=== PATIENT | male | born 1955 | race Caucasian/White ===

== ENCOUNTER → 2016-04-24 | Outpatient (CLI) | payer MEDICARE ==
[~2016-04-24] MED LIST: CLOM50TA2 PO; FLUT100D IH; IOHEXOL 180 MG/ML 10 ML VIAL. ONE; LOSA50TA2 PO; NORT10CA PO; OMEP20CA9 PO; OXYC15TA PO; SERT100T PO; VERA240T PO; methylPREDNISolone ACETATE 40 MG/ML VIAL. ONE; methylPREDNISolone ACETATE 80 MG/ML VIAL. ONE
--- NOTE | 2016-04-25 02:26 | PAIN ---
DATE OF SERVICE: 04/24/2016 DIAGNOSES: Lumbar radiculopathy with lumbar spinal stenosis and lumbar degenerative disk disease. HISTORY OF PRESENT ILLNESS: The patient is a 61-year-old male who returns for followup status post lumbar epidural steroid injections x 3, last seen on 05/11/2015. The patient reports he did very well after the injection, about 75-80% improvement. This lasted until about December of this past year. The patient reports he started having increased pain again in the low back and right leg radiating into the right posterior gluteus, posterolateral thigh, lateral anterior thigh, for the most part on the right side only, but occasionally on the left. The patient reports it is worse across the back with some increased spasms. His primary care physician has put him on some muscle relaxants as well as OxyContin, which he is only taking half of the amount prescribed as he does not like to be on pain medications. 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 The patient reports that he has no new motor or sensory deficits, no new bowel or bladder incontinence, but still significant pain in the back itself. We did have a new MRI scan dated 10/12/2015 with degenerative changes again noted at L4-L5, L3-L4, L5-S1 with some broad-based disk bulging at L4-L5 and L3-L4 with some mild central spinal stenosis. The patient otherwise is doing fairly well, has no new motor or sensory deficits, no new bowel or bladder incontinence or other complaints. The patient's old chart was reviewed as his current medication regimen and updated. Current review of systems updated today as well. PHYSICAL EXAMINATION: VITAL SIGNS: Today, the patient's blood pressure is 131/86, pulse is 96, respirations 18, temperature 98.2 degrees Fahrenheit, height is 5 feet 6 inches, weight is 150 pounds. GENERAL: The patient is awake, alert, oriented, appropriate, very pleasant demeanor. HEENT: Shows normocephalic, atraumatic. Extraocular movements are intact and symmetrical. Oral cavity shows mucous membranes are moist and pink. NECK: Shows anterior throat supple. CHEST: Shows normal on inspection. Breath sounds are clear to auscultation bilaterally. HEART: Shows S1 and S2 clear. ABDOMEN: Soft, nontender, nondistended. BACK: Shows spine grossly in midline. Lumbar paraspinous muscle shows some moderate tenderness with palpation, very firm musculature throughout the upper, middle and lower distribution of paraspinous lumbar musculature, but normal muscle girth, just firm and diffusely tender throughout bilaterally. No tenderness over the sacrum or sacroiliac regions. The patient shows good rotation and motion of the lumbar spine, both laterally as well as extension and flexion. EXTREMITIES: Lower extremities show deep tendon reflexes at 1+/4 in the patellar and tendo calcaneus tendons. Motor exam is strong with 5/5 dorsiflexion, extension, quadriceps and hamstring flexion and equal. Options were discussed with the patient. We will proceed with a lumbar epidural steroid injection today at the L4-L5 level with fluoroscopic guidance. Risks were again discussed including, but not limited to bleeding, infection, possibility of epidural hematoma and subsequent neurological compromise, dural puncture, headaches, spinal cord and/or nerve damage, side effects of steroid medication and poor results regarding pain control. The patient understands and wishes to proceed. The patient will return to the clinic in approximately 2 weeks for followup. He was counseled on return appointment, activity level and side effects to be aware of. DIAGNOSES: Lumbar radiculopathy with lumbar degenerative disk disease and lumbar spinal stenosis. PROCEDURE: Lumbar epidural steroid injection in translaminar approach at the L4-L5 level with fluoroscopic guidance under sterile prep and drape using local anesthetic. Medications injected are 120 mg of Depo-Medrol plus 10 mL of preservative-free normal saline and 2 mL of Isovue for contrast. The patient's condition at discharge is stable. The patient tolerated the procedure well, had no complications. LUCIANO HAMMONDS MD DR: ADAN/cuca JOB#: [id number] / [id number]
== END | disposition home or self-care (01) ==
LOC: PNCL 13:30
PROVIDERS: ATTEND Anesthesiology
DX: M51.16 Intervertebral disc disorders with radiculopathy, lumbar region (principal)
CPT/HCPCS: 62323; J1030; J1040

== ENCOUNTER → 2016-05-08 | Outpatient (CLI) | payer MEDICARE ==
--- NOTE | 2016-05-09 01:02 | PAIN ---
DATE OF SERVICE: 05/08/2016 PROGRESS NOTE DIAGNOSES: Lumbar radiculopathy with lumbar degenerative disk disease and lumbar spinal stenosis. HISTORY OF PRESENT ILLNESS: The patient is a 61-year-old male who returns for followup status post lumbar epidural steroid injection x 1. The patient reports she did very well about 75% improvement in his low back and right lower extremity. The patient reports that the pain in his leg has almost completely gone, but he still has some pain in the posterior hip, posterior back without significant radiation. The patient reports it is a dull aching pain, worse with standing for long periods of walking, changing positions at times, but does not awake him sleepy. 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 The patient reports it is a 3 on a scale of 10, describes the pain as dull, some sharper pain occasionally, but overall much improved without any new motor or sensory deficits, no new bowel or bladder incontinence or other complaints. PHYSICAL EXAMINATION: VITAL SIGNS: The patient's blood pressure 146/96, pulse 90, respirations 18, temperature 98.3 degrees Fahrenheit, height is 5 feet 6 inches and weighs 149 pounds. GENERAL: The patient is awake, alert, oriented, appropriate, very pleasant demeanor. HEENT: Head shows normocephalic and atraumatic. Extraocular movements are intact and symmetrical. Oral cavity shows mucous membranes are moist and pink. Dentition is intact. NECK: Shows anterior throat supple without palpable lymphadenopathy noted. Swallow reflex is symmetrical. Neck shows full rotation and motion of the cervical spine without difficulty or tenderness. CHEST: Shows normal on inspection. Breath sounds are clear to auscultation bilaterally. HEART: Shows S1 and S2 clear. ABDOMEN: Soft, nontender, and nondistended. No palpable organomegaly is noted. BACK: Shows spine grossly in midline. Lumbar paraspinous muscle shows some moderate tenderness with palpation, but is symmetrical in appearance. Some mild diffuse tenderness in the lower lumbar distribution, though slightly more on the right than the left, but no asymmetry, no trigger points, no radiation. No tenderness over the sacrum or sacroiliac regions. EXTREMITIES: Lower extremities show deep tendon reflexes at 1+ in the patellar and tendo calcaneus tendons. Motor exam is strong with 5/5 dorsiflexion and extension as well as quadriceps and hamstring flexion and are strong and equal. PLAN: Options were discussed with the patient. At this time, the patient's old chart was reviewed and his current medication regimen and updated. Current review of systems updated today as well. We will plan on a second lumbar epidural steroid injection today with fluoroscopic guidance. Risks were again discussed including, but not limited to bleeding, infection, possibility of epidural hematoma, and subsequent neurological compromise, dural puncture, headaches, spinal cord and/or nerve damage, side effects of steroid medication and poor results regarding pain control. The patient understands and wished to proceed. The patient will return to clinic in approximately 2 weeks for followup. He was counseled on his return appointment, activity level and side effects to be aware of. DIAGNOSES: Lumbar radiculopathy with lumbar degenerative disk disease and lumbar spinal stenosis. PROCEDURE: Lumbar epidural steroid injection in translaminar approach at the L4-L5 level using C-arm fluoroscopic guidance under sterile prep and drape using local anesthetic. MEDICATIONS INJECTED: Depo-Medrol 120 mg plus 10 mL of preservative-free normal saline and 2 mL of Isovue for contrast. CONDITION AT DISCHARGE: Stable. The patient tolerated the procedure well, had no complications. LUCIANO HAMMONDS MD DR: ADAN/cuca JOB#: [id number] / [id number]
== END | disposition home or self-care (01) ==
LOC: PNCL 13:28
PROVIDERS: ATTEND Anesthesiology
DX: M51.16 Intervertebral disc disorders with radiculopathy, lumbar region (principal); M48.06 Spinal stenosis, lumbar region
CPT/HCPCS: 62323; J1030; J1040

== ENCOUNTER → 2016-06-08 | Outpatient (CLI) | payer MEDICARE ==
--- NOTE | 2016-06-09 01:11 | PAIN ---
DATE OF SERVICE: 06/08/2016 PROGRESS NOTE DIAGNOSES: Lumbar radiculopathy with lumbar spinal stenosis, lumbar degenerative disk disease. HISTORY OF PRESENT ILLNESS: The patient is a 61-year-old male, who returns for followup status post lumbar epidural steroid injections x 2. The patient reports initially about 80%, better, but the pain is now about 50% improved after last injection, still some pain in the right leg and low back and it was worse in the morning and stiff, worse on the right side and the low back as well. The patient reports his pain is 5 on a scale of 10 and its worse still doing well with increased activity and standing and walking, better than ____, but the pain is not quite significantly reduced as well after the first injection. ____ right leg aches, numbness at times, mostly in the right anterior thigh, medial, lower leg below the knee. The patient reports no new motor or sensory deficits, no new bowel or bladder incontinence or other complaints. PHYSICAL EXAMINATION: VITAL SIGNS: Today, the patient's blood pressure is 125/88, pulse 101, respirations 18, temperature 98.7 degrees Fahrenheit, height is 5 feet 6 inches, weight is 157 pounds. GENERAL: The patient is awake, alert, oriented, appropriate, very pleasant demeanor. HEENT: Head shows normocephalic, atraumatic. Extraocular movements are intact, symmetrical. Oral cavity shows mucous membranes moist and pink. NECK: Shows anterior throat supple without palpable lymphadenopathy noted. Swallow reflex is symmetrical. CHEST: Shows normal on inspection. Breath sounds clear to auscultation bilaterally. HEART: Shows S1 and S2 clear. ABDOMEN: Soft, nontender, nondistended. BACK: Shows spine grossly midline. Lumbar paraspinous muscle shows moderate tenderness with palpation, but only diffusely in the lower lumbar distribution, slightly more on the right than the left, but is symmetrical without evidence of atrophy, hypertrophy, no radiation of pain, no tenderness over the sacrum or the sacroiliac regions. The patient shows good rotation and motion of the lumbar spine, both laterally as well as extension and flexion. EXTREMITIES: Lower extremities showed deep tendon reflexes at 1+ in the patellar and tendo calcaneus tendons. Motor exam is strong with 5/5 dorsiflexion, extension, quadriceps and hamstring flexion equal. Options were discussed with the patient. The patient's old chart was reviewed and his current medication regimen updated. Current review of systems updated today as well. We will proceed with a third lumbar epidural steroid injection today with fluoroscopic guidance. Risks were again discussed including but not limited to bleeding, infection, possibility of epidural hematoma, subsequent neurologic compromise, dural puncture headaches, spinal cord and/or nerve damage, side effects of steroid medications and poor results regarding pain control. The patient understands and wishes to proceed. The patient will return to clinic in approximately 2 weeks for followup. He was counseled on return appointment, activity level and side effects to be aware of. DIAGNOSIS: Lumbar radiculopathy with lumbar spinal stenosis, lumbar degenerative disease. PROCEDURES: Lumbar epidural steroid injection translaminar approach at the L4-L5 level using C-arm fluoroscopic guidance under sterile prep and drape using local anesthetic. Medication injected 120 mg Depo-Medrol plus 10 mL of preservative-free normal saline and 2 mL of Isovue for contrast. CONDITION AT DISCHARGE: Stable. The patient tolerated the procedure well, had complications. LUCIANO HAMMONDS MD DR: ADAN/cuca JOB#: [id number] / [id number]
== END | disposition home or self-care (01) ==
LOC: PNCL 09:28
PROVIDERS: ATTEND Anesthesiology
DX: M51.16 Intervertebral disc disorders with radiculopathy, lumbar region (principal); M48.06 Spinal stenosis, lumbar region
CPT/HCPCS: 62323; J1030; J1040

== ENCOUNTER → 2016-10-12 | Outpatient (CLI) | payer MEDICARE ==
[~2016-10-12] MED LIST changes: +GADOBUTROL 7.5 MMOL/7.5 ML VIAL INT ART ONE; -IOHEXOL 180 MG/ML 10 ML VIAL. ONE; +IOHEXOL 300 MG/ML 50 ML VIAL. INT ART ONE; +LIDOCAINE 1% Multi-Dose 20 ML VIAL. ID ONE; -methylPREDNISolone ACETATE 40 MG/ML VIAL. ONE; -methylPREDNISolone ACETATE 80 MG/ML VIAL. ONE
--- NOTE | 2016-10-12 13:11 | KCIC ---
MR arthrogram of the right shoulder Indication: Chronic pain. Prior arthroscopic surgery x2. Injury in 1999. No prior studies available for comparison. Technique: Intra-articular contrast injected into the glenohumeral joint and is reported separately. Routine 4 plane sequences were obtained, including ABER positioning. Findings: Acromioclavicular joint: Intact. Very mild degenerative changes but no significant undersurface mass effect. Rotator cuff: Mild undersurface thinning and irregularity of the supraspinatus and infraspinatus tendons compatible with partial tearing. No high-grade or full-thickness tear. No significant fluid or contrast in the subdeltoid bursa. Articular cartilage: Moderate chondromalacia, greater at the glenoid. Very mild surface irregularity of the glenoid subchondral bone. No significant subchondral edema. Small anteroinferior glenoid subchondral cyst. Labrum: Mild ill-defined contrast accumulation within the superior labrum. Mild blunting of the posterior and inferior labrum. Mild irregularity of the anteroinferior labrum. All of these findings could be related to chronic tearing and/or prior surgical intervention. No acute appearing labral detachment. Biceps tendon: Intact Bones: No lesion or acute fracture. Soft tissue: No acute soft tissue abnormality. No evidence of nerve entrapment or space-occupying lesion. Impression: 1. Mild superficial undersurface tearing of the supraspinatus and infraspinatus tendon of the rotator cuff. No full-thickness rupture or retraction. 2. Generalized labral irregularity, with mild signal in the superior labrum and anteroinferior labrum. Findings could be related to chronic degeneration or tearing, or secondary to prior labral surgery. The overall appearance appears chronic and degenerative, but tearing of the superior labrum in particular is difficult to exclude. 3. Glenohumeral joint primary osteoarthritis. At least moderate glenoid chondromalacia with subchondral bone irregularity. Electronically signed by: Jovanny Hernandez MD (10/12/2016 1:08 PM)
--- NOTE | 2016-10-12 14:06 | KCIC ---
PROCEDURE: Right shoulder injection using fluoroscopic guidance, prior to MR. HISTORY: Shoulder pain. Chronic pain. Injury in 1999. TECHNIQUE: The procedure was explained to the patient as were potential risks, including among others infection, bleeding or allergic reaction. All questions were answered. Informed written and verbal consent was obtained. The shoulder was prepped and draped in the usual sterile manner. Following administration of local anesthetic, a 22-gauge needle was advanced into the anterior shoulder. Following negative aspiration, 12 cc of a solution of 5cc Omnipaque-300 contrast, 5 cc 1% lidocaine, 10 cc normal saline, and 0.1 cc gadolinium was injected without difficulty. The needle was removed. There was good hemostasis at the injection site. The patient left in stable condition without immediate complication. The patient was given postprocedural instructions, and instructed to contact us or the ER if there are any complications. A single spot image is obtained. FLUOROSCOPY TIME:?23 seconds Electronically signed by: Jovanny Hernandez MD (10/12/2016 2:03 PM)
== END | disposition home or self-care (01) ==
LOC: KCIC 10:37
PROVIDERS: ATTEND Orthopaedic Surgery
DX: M19.011 Primary osteoarthritis, right shoulder (principal); G89.29 Other chronic pain
CPT/HCPCS: 73040; 73222; Q9967; A9585

== ENCOUNTER → 2016-11-20 | Outpatient (CLI) | payer MEDICARE ==
[~2016-11-20] MED LIST changes: -GADOBUTROL 7.5 MMOL/7.5 ML VIAL INT ART ONE; +GADOBUTROL 7.5 MMOL/7.5 ML VIAL IV ONE; -IOHEXOL 300 MG/ML 50 ML VIAL. INT ART ONE; -LIDOCAINE 1% Multi-Dose 20 ML VIAL. ID ONE
--- NOTE | 2016-11-20 09:48 | KCIC ---
EXAM: Brain MRI with and without contrast. HISTORY: Headache. Traumatic brain injury. TECHNIQUE: Multiplanar, multisequence magnetic resonance imaging of the brain was performed prior to and following the administration of 6 cc Gadavist intravenous contrast. COMPARISON: None. FINDINGS: There is no restricted diffusion to suggest acute or subacute infarction. There is a focus of susceptibility effect within the right frontotemporal junction due to chronic microhemorrhage. There is surrounding T2/FLAIR hyperintensity likely due to gliosis. There are multiple additional scattered focal areas of T2/FLAIR hyperintensity within the cerebral white matter, a nonspecific finding. There is no mass effect or midline shift. There is no hydrocephalus. There is evidence of prior right lens surgery. The paranasal sinuses and mastoid air cells are unremarkable. There are normal flow voids within the cerebral vessels. No abnormal enhancing lesion is seen. IMPRESSION: 1. No acute intracranial finding. 2. Focus of susceptibility effect with surrounding T2/FLAIR hyperintensity within the right frontotemporal junction. Given the history of prior traumatic brain injury, this is likely due to a focus of chronic microhemorrhage with surrounding gliosis. 3. Multiple scattered focal areas of T2/FLAIR hyperintensity within the cerebral white matter, a nonspecific finding. The lesion distribution and configuration favors chronic small vessel disease rather than demyelinating disease as the underlying etiology. This is advanced for patient age. Electronically signed by: Maria Alejandra Leblanc MD (11/20/2016 9:44 AM) [id number]
== END | disposition home or self-care (01) ==
LOC: KCIC MRI 08:45
PROVIDERS: ATTEND Physician Assistant Surgical
DX: R51 Headache (principal); S06.9X0D Unspecified intracranial injury without loss of consciousness, subsequent encounter; X58.XXXD Exposure to other specified factors, subsequent encounter
CPT/HCPCS: 70553; A9585

== ENCOUNTER 2016-12-26 12:32 | Emergency (ER) | payer MEDICARE ==
[~2016-12-26] VITALS: Ht 167.6 cm; Wt 71.2 kg
[~2016-12-26 12:32] MED LIST changes: -GADOBUTROL 7.5 MMOL/7.5 ML VIAL IV ONE
[2016-12-26 12:35] VITALS: BP 151/96
--- NOTE | 2016-12-26 13:03 | PHYS DOC ---
Past Medical History Past Medical History: Hypertension Additional Past Medical Histor: HEAD INJURY Past Surgical History: Cholecystectomy Additional Past Surgical Histo: NECK-MIGUEL Alcohol Use: Occasionally Drug Use: None Adult General Chief Complaint Chief Complaint: LOWER EXT PAIN [facility] HPI Patient is a 61 year old male presents to the emergency department stating that a few days ago he had a piece of metal that was caught into his left lower leg. He states he pulled it out and then developed a knot around the area. He states within the last day or 2 he developed bruising at the sock line. He states that his leg had been swollen above the sock. Patient states that he take at his primary care physician who referred him to the emergency department. He denies any numbness or tingling in the lower extremity. He does state that he does take an aspirin. He denies any other blood thinners at the current time. He denies any calf pain or discomfort. Review of Systems Review of Systems Constitutional: Denies fever or chills [] Eyes: Denies change in visual acuity, redness, or eye pain [] HENT: Denies nasal congestion or sore throat [] Respiratory: Denies cough or shortness of breath [] Cardiovascular: No additional information not addressed in HPI [] GI: Denies abdominal pain, nausea, vomiting, bloody stools or diarrhea [] : Denies dysuria or hematuria [] Musculoskeletal: Denies back pain or joint pain [] Integument: Denies rash or skin lesions. Bruising and possible abscess to the left lower leg. Neurologic: Denies headache, focal weakness or sensory changes [] Endocrine: Denies polyuria or polydipsia [] Current Medications Current Medications Current Medications Medications (Trade) Dose Ordered Sig/Dat Start Time Stop Time Status Last Admin Dose Admin Lidocaine/Sodium Bicarbonate (Buffered Lidocaine 1%) 20 ml 1X ONCE 12/26/16 14:15 12/26/16 14:16 DC 12/26/16 14:19 20 ML Allergies Allergies Allergies Coded Allergies Type Severity Reaction Last Updated Verified methadone Allergy Intermediate hallucinations 04/13/15 Yes trazodone Allergy Intermediate hallucinations 04/13/15 Yes Physical Exam Physical Exam Constitutional: Well developed, well nourished, no acute distress, non-toxic appearance. [] HENT: Normocephalic, atraumatic, bilateral external ears normal, oropharynx moist, no oral exudates, nose normal. [] Eyes: PERRLA, EOMI, conjunctiva normal, no discharge. [] Neck: Normal range of motion, no tenderness, supple, no stridor. [] Cardiovascular:Heart rate regular rhythm Lungs & Thorax: No respiratory distress noted. Skin: Warm, dry, no erythema, no rash. Patient with ecchymosis noted on the left lower leg on the medial part just above the ankle. Patient appears to have a straight line across the leg with the ecchymosis starts from where his sock had been applied. Patient with a knot noted underneath the scabbed area on the left ware. Back: No tenderness Extremities: No tenderness, no cyanosis, no clubbing, ROM intact, no edema. Patient with a negative Homans sign. Patient with tenderness noted on the left ware. Peripheral pulses 2+ cap refill brisk less than 2 seconds. Neurologic: Alert and oriented X 3, normal motor function, normal sensory function, no focal deficits noted. [] Psychologic: Affect normal, judgement normal, mood normal. [] Current Patient Data Vital Signs Vital Signs Date Time Temp Pulse Resp B/P (MAP) Pulse Ox O2 Delivery O2 Flow Rate FiO2 12/26/16 12:35 98.4 102 18 99 Room Air 98.4 Lab Values Laboratory Tests Test 12/26/16 13:06 White Blood Count 5.7 x10^3/uL (4.0-11.0) Red Blood Count 4.27 x10^6/uL (4.30-5.70) L Hemoglobin 14.0 g/dL (13.0-17.5) Hematocrit 40.6 % (39.0-53.0) Mean Corpuscular Volume 95 fL (79-100) Mean Corpuscular Hemoglobin 33 pg (25-35) Mean Corpuscular Hemoglobin Concent 34 g/dL (31-37) Red Cell Distribution Width 12.4 % (11.5-14.5) Platelet Count 163 x10^3/uL (140-400) Neutrophils (%) (Auto) 79 % (31-73) H Lymphocytes (%) (Auto) 13 % (24-48) L Monocytes (%) (Auto) 6 % (0-9) Eosinophils (%) (Auto) 2 % (0-3) Basophils (%) (Auto) 0 % (0-3) Neutrophils # (Auto) 4.5 x10^3uL (1.8-7.7) Lymphocytes # (Auto) 0.7 x10^3/uL (1.0-4.8) L Monocytes # (Auto) 0.4 x10^3/uL (0.0-1.1) Eosinophils # (Auto) 0.1 x10^3/uL (0.0-0.7) Basophils # (Auto) 0.0 x10^3/uL (0.0-0.2) Prothrombin Time 12.5 SEC (11.7-14.0) Prothrombin Time INR 1.0 (0.8-1.1) PTT 28 SEC (24-38) Sodium Level 144 mmol/L (136-145) Potassium Level 3.6 mmol/L (3.5-5.1) Chloride Level 105 mmol/L (98-107) Carbon Dioxide Level 32 mmol/L (21-32) Anion Gap 7 (6-14) Blood Urea Nitrogen 8 mg/dL (8-26) Creatinine 1.0 mg/dL (0.7-1.3) Estimated GFR (Cockcroft-Gault) 76.5 BUN/Creatinine Ratio 8 (6-20) Glucose Level 100 mg/dL (70-99) H Calcium Level 8.8 mg/dL (8.5-10.1) Total Bilirubin 0.5 mg/dL (0.2-1.0) Aspartate Amino Transferase (AST) 21 U/L (15-37) Alanine Aminotransferase (ALT) 45 U/L (16-63) Alkaline Phosphatase 125 U/L (46-116) H Total Protein 7.3 g/dL (6.4-8.2) Albumin 3.9 g/dL (3.4-5.0) Albumin/Globulin Ratio 1.1 (1.0-1.7) Laboratory Tests 12/26/16 13:06 Laboratory Tests 12/26/16 13:06 EKG EKG [] Radiology/Procedures Radiology/Procedures [][facility] [address] [place], [place] [id number] IMAGING REPORT Signed PATIENT: CHICHO ONEIL ACCOUNT: [id number] : 1955 LOCATION: ER AGE: 61 SEX: M EXAM [id number] STATUS: REG ER ORD. PHYSICIAN: POLO PARISH APRN REASON: pain in the heel PROCEDURE: CALCANEUS LEFT; FOOT LEFT 3V Left calcaneus, 2 views, 12/26/2016: History: Heel pain No fracture is identified. There is a small sclerotic focus in the calcaneus, most likely a bone island. No calcaneal spurring is evident. Subcutaneous edema is present along the plantar aspects of the heel. IMPRESSION: 1. Small sclerotic focus in the calcaneus, most likely a bone island. 2. No acute calcaneal abnormality is detected. Left foot, 3 views, 12/26/2016: No fracture or dislocation is identified. There is only minimal spurring at the IP and MTP joints of the great toe. IMPRESSION: No acute bony abnormality is detected. DICTATED and SIGNED BY: CONNER AUSTIN MD DATE: 12/26/16 1351 CC: POLO PARISH APRN; SAMMY LOMBARDO MD ~ [facility] [address] [place] [address] IMAGING REPORT Signed PATIENT: CHICHO ONEIL ACCOUNT: [id number] : 1955 LOCATION: ER AGE: 61 SEX: M EXAM STATUS: REG ER ORD. PHYSICIAN: POLO PARISH APRN REASON: patient with possible abscess PROCEDURE: EXT NON VASC LEFT Indication redness swelling. Targeted ultrasound was performed. The examination was targeted to the left lower and anterior calf. There is a complex fluid collection in the calf measuring approximately 2.8 x 0.5 cm. This may represent a hematoma. The sterility is not certain. Abscess is not excluded. DICTATED and SIGNED BY: FARHANA NAZARIO MD DATE: 12/26/16 1337 CC: POLO PARISH APRN; SAMMY LOMBARDO MD ~ Course & Med Decision Making Course & Med Decision Making Pertinent Labs and Imaging studies reviewed. (See chart for details) Patient tolerated the procedure very well. His leg does feel somewhat warm. He will be placed on antibiotics such as Bactrim. She'll be recommended to follow- up with a hematology oncology doctor Within the next week. CBC CMP and INR PT is all within normal limits. Patient was recommended to keep the left leg elevated as much as possible. Patient will be discharged home in stable condition signs and symptoms to return back to emergency department as been provided. Recommended following up with his primary care physician as well as next 3-5 days in regards to cellulitis to the left lower leg. [] Dragon Disclaimer Dragon Disclaimer This electronic medical record was generated, in whole or in part, using a voice recognition dictation system. Departure Departure Impression: Primary Impression: Cellulitis of left lower leg Additional Impression: Abnormal bruising Disposition: HOME, SELF-CARE Condition: STABLE Referrals: SAMMY LOMBARDO MD (PCP) Patient Instructions: Cellulitis, [id number] Additional Instructions: Your lab results was within normal limits. Your x-ray results identified a bone island in your foot. You'll be placed on antibiotics please take these as directed. Keep the left leg elevated as much as possible. Follow-up with hematology oncology physician within the next week. Follow-up to primary care physician next 3-5 days. Return back to emergency prior signs and symptoms of become worse. Scripts Sulfamethoxazole/Trimethoprim (BACTRIM DS TABLET) 1 Each Tablet 1 TAB PO BID, #20 TAB Prov: POLO PARISH APRN 12/26/16 Incision and Drainage Incision and Drainage : Site: left lower leg Blade Size: 18-gauge needle I & D Procedure: betadine prep, sterile drapes applied, sterile dressing applied Progress Site was cleaned with Betadine with sterile drapes applied around the outer area. 1% lidocaine buffered was injected to the area with approximately 2 mL. 18 -gauge needle with a syringe was used to aspirate small amount of blood noted. Pressure dressing was applied. Patient will be discharged home in stable condition. Problem Qualifiers POLO PARISH APRN Dec 26, 2016 13:03
[2016-12-26 13:21] LABS: BASO % 0 % (0-3); EOS % 2 % (0-3); HEMATOCRIT 40.6 % (39.0-53.0); LYMPH # 0.7 x10^3/uL (1.0-4.8); LYMPH % 13 % (24-48); MEAN CORPUSCULAR HEMOGLOBIN 33 pg (25-35); MEAN CORPUSCULAR HGB CONC 34 g/dL (31-37); MEAN CORPUSCULAR VOLUME 95 fL (79-100); MONO % 6 % (0-9); NEUT % 79 % (31-73); PLATELET COUNT 163 x10^3/uL (140-400); RED BLOOD COUNT 4.27 x10^6/uL (4.30-5.70); RED CELL DISTRIBUTION WIDTH 12.4 % (11.5-14.5); WHITE BLOOD COUNT 5.7 x10^3/uL (4.0-11.0)
[2016-12-26 13:24] LABS: CALCIUM 8.8 mg/dL (8.5-10.1); GFR 76.5; POTASSIUM 3.6 mmol/L (3.5-5.1)
[2016-12-26 13:31] LABS: ALBUMIN 3.9 g/dL (3.4-5.0); ALBUMIN/GLOBULIN RATIO 1.1 (1.0-1.7); PROTHROMBIN TIME PATIENT 12.5 SEC (11.7-14.0); TOTAL BILIRUBIN 0.5 mg/dL (0.2-1.0); TOTAL PROTEIN 7.3 g/dL (6.4-8.2)
--- NOTE | 2016-12-26 13:40 | RAD ---
Indication redness swelling. Targeted ultrasound was performed. The examination was targeted to the left lower and anterior calf. There is a complex fluid collection in the calf measuring approximately 2.8 x 0.5 cm. This may represent a hematoma. The sterility is not certain. Abscess is not excluded.
--- NOTE | 2016-12-26 13:57 | RAD ---
Left calcaneus, 2 views, 12/26/2016: History: Heel pain No fracture is identified. There is a small sclerotic focus in the calcaneus, most likely a bone island. No calcaneal spurring is evident. Subcutaneous edema is present along the plantar aspects of the heel. IMPRESSION: 1. Small sclerotic focus in the calcaneus, most likely a bone island. 2. No acute calcaneal abnormality is detected. Left foot, 3 views, 12/26/2016: No fracture or dislocation is identified. There is only minimal spurring at the IP and MTP joints of the great toe. IMPRESSION: No acute bony abnormality is detected.
[2016-12-26] MEDS ORDERED: LIDOCAINE 1% / SOD BICARB 8.4% 20 ML VIAL. IJ ONE (14:15)
[2016-12-26] MEDS ORDERED: SULF1TAB24 PO (14:53)
[2016-12-26] MEDS ORDERED: DIPHTH,PERTUSS(ACELL),TET TOX 0.5 ML DISP.SYRIN. VAX IM ONE (15:00)
== END 2016-12-26 15:20 | disposition home or self-care (01) ==
LOC: ER 12:32
DX: S80.12XA Contusion of left lower leg, initial encounter (principal); L03.116 Cellulitis of left lower limb; I10 Essential (primary) hypertension; Z88.5 Allergy status to narcotic agent; X58.XXXA Exposure to other specified factors, initial encounter; Y93.89 Activity, other specified; Y92.89 Other specified places as the place of occurrence of the external cause; Y99.8 Other external cause status
CPT/HCPCS: 10060; 36415; 73630; 73650; 76881; 80053; 85025; 85610; 85730; 90471; 90715; 99285-25

== ENCOUNTER 2017-04-24 12:10 | Emergency (ER) | payer MEDICARE ==
[2017-04-24 13:19] LABS: ADD MAN DIFF? NO
[2017-04-24 13:25] LABS: BASO % 0 % (0-3); EOS # 0.1 x10^3/uL (0.0-0.7); EOS % 1 % (0-3); HEMATOCRIT 42.1 % (39.0-53.0); HEMOGLOBIN 14.1 g/dL (13.0-17.5); LYMPH # 0.9 x10^3/uL (1.0-4.8); LYMPH % 14 % (24-48); MEAN CORPUSCULAR HEMOGLOBIN 32 pg (25-35); MEAN CORPUSCULAR HGB CONC 34 g/dL (31-37); MEAN CORPUSCULAR VOLUME 94 fL (79-100); MONO # 0.5 x10^3/uL (0.0-1.1); MONO % 8 % (0-9); NEUT # 4.6 x10^3uL (1.8-7.7); NEUT % 76 % (31-73); PLATELET COUNT 167 x10^3/uL (140-400); RED BLOOD COUNT 4.49 x10^6/uL (4.30-5.70); RED CELL DISTRIBUTION WIDTH 12.7 % (11.5-14.5); WHITE BLOOD COUNT 6.1 x10^3/uL (4.0-11.0)
[2017-04-24 13:38] LABS: ANION GAP 9 (6-14); BLOOD UREA NITROGEN 14 mg/dL (8-26); BUN/CREATININE RATIO 14 (6-20); CALCIUM 8.8 mg/dL (8.5-10.1); CARBON DIOXIDE 28 mmol/L (21-32); CHLORIDE 104 mmol/L (98-107); GFR 76.2; GLUCOSE 94 mg/dL (70-99); SODIUM 141 mmol/L (136-145)
[2017-04-24 13:41] LABS: PARTIAL THROMBOPLASTIN TIME 28 SEC (24-38); PROTHROMBIN TIME PATIENT 12.8 SEC (11.7-14.0)
[2017-04-24 13:43] LABS: ALBUMIN 3.7 g/dL (3.4-5.0); ALBUMIN/GLOBULIN RATIO 1.1 (1.0-1.7); ALK PHOS 137 U/L (46-116); ALT (SGPT) 19 U/L (16-63); AST (SGOT) 14 U/L (15-37); LIPASE 81 U/L (73-393); MAGNESIUM 2.1 mg/dL (1.8-2.4); TOTAL BILIRUBIN 0.6 mg/dL (0.2-1.0)
[2017-04-24 13:46] LABS: TROPONINI < 0.017 ng/mL (0.000-0.055)
[2017-04-24 13:49] LABS: NT-PRO BNP 127 pg/mL (0-124)
[2017-04-24] MEDS: LIDO:MAALOX:DONNATAL 1:1:1 15 ML SINGLE DOSE SWSW (14:00)
== END 2017-04-24 17:04 | disposition home or self-care (01) ==
LOC: ER 12:10
DX: R07.89 Other chest pain (principal); R10.13 Epigastric pain; E78.00 Pure hypercholesterolemia, unspecified; I10 Essential (primary) hypertension; Z90.49 Acquired absence of other specified parts of digestive tract; Z88.8 Allergy status to other drugs, medicaments and biological substances
CPT/HCPCS: 36415; 71046; 80053; 83690; 83735; 83880; 84484; 85025; 85610; 85730; 93005; 99285-25

== ENCOUNTER → 2017-08-21 | Outpatient (CLI) | payer MEDICARE | END | disposition home or self-care (01) | LOC: ECHO 09:52 | DX: I08.0 Rheumatic disorders of both mitral and aortic valves (principal); R60.0 Localized edema | CPT/HCPCS: 93306 ==

== ENCOUNTER → 2017-09-17 | Outpatient (CLI) | payer MEDICARE | END | disposition home or self-care (01) | LOC: NM 07:57 | DX: R07.89 Other chest pain (principal) | CPT/HCPCS: 78452; 93017; 96374; 96376; A9500 ==

== ENCOUNTER → 2017-11-05 | Outpatient (CLI) | payer MEDICARE ==
[~2017-11-05] MED LIST changes: -CLOM50TA2 PO; -FLUT100D IH; +IOHEXOL 180 MG/ML 10 ML VIAL.; +LIDOCAINE 1% PF 2 ML VIAL.; -LOSA50TA2 PO; -NORT10CA PO; -OMEP20CA9 PO; -OXYC15TA PO; -SERT100T PO; -VERA240T PO; +methylPREDNISolone ACETATE 40 MG/ML VIAL.; +methylPREDNISolone ACETATE 80 MG/ML VIAL.
== END | disposition home or self-care (01) ==
LOC: PNCL 13:31
DX: M51.16 Intervertebral disc disorders with radiculopathy, lumbar region (principal); M48.061 Spinal stenosis, lumbar region without neurogenic claudication; Z88.8 Allergy status to other drugs, medicaments and biological substances
CPT/HCPCS: 62323; J1030; J1040; Q9965

== ENCOUNTER → 2018-01-16 | Outpatient (CLI) | payer MEDICARE ==
[2017-04-24 12:14] VITALS: BP 174/95
[~2018-01-16] MED LIST changes: +CLOM50TA16 PO; +FLUT100D IH; +HYDR12.53 PO; -IOHEXOL 180 MG/ML 10 ML VIAL.; +IOHEXOL 180 MG/ML 10 ML VIAL. ONE; -LIDOCAINE 1% PF 2 ML VIAL.; +LIDOCAINE 2% PF 2ML VIAL. ONE; +LOSA50TA2 PO; +NORT10CA PO; +OMEP20CA9 PO; +OMEP40CA5 PO; +OXYC15TA PO; +SERT100T PO; +SULF1TAB24 PO; +VERA240T PO; -methylPREDNISolone ACETATE 40 MG/ML VIAL.; +methylPREDNISolone ACETATE 40 MG/ML VIAL. ONE; -methylPREDNISolone ACETATE 80 MG/ML VIAL.; +methylPREDNISolone ACETATE 80 MG/ML VIAL. ONE
--- NOTE | 2018-01-16 23:43 | PAIN ---
DATE OF SERVICE: 01/16/2018 PROGRESS NOTE FOR PAIN CLINIC DIAGNOSES: Lumbar radiculopathy with lumbar spinal stenosis and lumbar degenerative disk disease. HISTORY OF PRESENT ILLNESS: The patient is a 62-year-old male who returns for followup status post lumbar epidural steroid injection x 1 on 11/05/2017. The patient reports she did very well with this initially about 70%-80% improvement, now is about down to 15%-20% improvement in the low back and bilateral lower extremities. The patient reports slightly worse on the right side but present bilaterally. The patient reports initially was doing much better, increasing walking, standing, change in positions, doing work activities, playing baseball as well. He does play in a competitive league. The patient reports no new motor or sensory deficits and no new bowel or bladder incontinence but significant pain returning in the bilateral low back radiating to the posterior lateral aspect of the thighs. The patient reports it is 8 on a scale of 10 at its worst, 5 on average and 3 at its least, radiating, becoming more constant, aching, dull, sharp, sometimes shooting and cramping. PHYSICAL EXAMINATION: VITAL SIGNS: Today, his blood pressure 134/97, pulse 94, respirations 18, temperature 98.3 degrees Fahrenheit, height is 5 feet 6 inches and weight 153 pounds. GENERAL: The patient is awake, alert, oriented, appropriate and very pleasant demeanor. HEENT: Head shows normocephalic and atraumatic. Extraocular muscles are intact and symmetrical. Oral cavity, mucous membranes are moist and pink. Dentition is intact. NECK: Shows anterior throat supple without palpable lymphadenopathy noted. Swallow reflex is symmetrical. CHEST: Shows normal on inspection. Breath sounds clear to auscultation bilaterally. HEART: Shows S1 and S2 clear. No murmurs auscultated. ABDOMEN: Soft, nontender and nondistended. No palpable organomegaly is noted. No rebound or guarding demonstrated. BACK: Shows spine grossly in the midline. Normal appearing thoracic kyphosis and lumbar lordotic curvature. Lumbar paraspinous muscle shows symmetrical on inspection. On palpation shows some moderate tenderness only diffusely without radiation in the paraspinous muscles, mainly in the lower distribution of the paraspinous without significant radiation. No trigger points. No atrophy or hypertrophy. The patient has good rotational motion of the lumbar spine, both laterally as well as extension and flexion. EXTREMITIES: Lower extremities show deep tendon reflexes 1+ in the patellar and tendo-calcaneus tendons are equal. Motor exam is strong with 5/5 dorsiflexion, extension, quadriceps and hamstring flexion and symmetrical. Peripheral pulses are 1+ posterior tibia. No peripheral edema is noted. Options were discussed with the patient. The patient's old chart was reviewed as well as his current medication regimen updated. Current review of systems updated today as well. We will proceed with a second in the series of lumbar epidural steroid injection today with fluoroscopic guidance. Risks were again discussed including, but not limited to bleeding, infection, possibility of epidural hematoma, subsequent neurologic compromise, dural puncture, headaches, spinal cord and/or nerve damage, side effects of steroid medication and poor results regarding pain control. The patient understands and wished to proceed. The patient will return to the clinic in approximately 2 weeks for followup, was counseled as to return appointment, activity level and side effects to be aware of. DIAGNOSES: Lumbar radiculopathy with lumbar spinal stenosis and lumbar degenerative disk disease. PROCEDURES: Lumbar epidural steroid injection, translaminar approach at L4-L5 level using C-arm fluoroscopic guidance under sterile prep and drape using local anesthetic. MEDICATION INJECTED: A total of 120 mg Depo-Medrol plus 10 mL of preservative-free normal saline and 2 mL of Isovue for contrast. CONDITION AT DISCHARGE: Stable. The patient tolerated the procedure well and had no complications. LUCIANO HAMMONDS MD DR: ADAN/cuca JOB#: [id number] / [id number]
== END | disposition home or self-care (01) ==
LOC: PNCL 10:07
PROVIDERS: ATTEND Anesthesiology
DX: M51.16 Intervertebral disc disorders with radiculopathy, lumbar region (principal); M48.061 Spinal stenosis, lumbar region without neurogenic claudication; Z79.899 Other long term (current) drug therapy; Z88.8 Allergy status to other drugs, medicaments and biological substances; Z98.890 Other specified postprocedural states
CPT/HCPCS: 62323; J1030; J1040; J2001; Q9965

== ENCOUNTER → 2018-06-20 | Outpatient (CLI) | payer MEDICARE ==
[2017-04-24 12:14] VITALS: BP 174/95
[~2018-06-20] MED LIST changes: -HYDR12.53 PO; +HYDR12.575 PO; -LIDOCAINE 2% PF 2ML VIAL. ONE; +LOSA-73 PO; -LOSA50TA2 PO; +OMEP20CA10 PO; -OMEP20CA9 PO
--- NOTE | 2018-06-20 18:55 | PAIN ---
DATE OF SERVICE: 06/20/2018 DIAGNOSES: Lumbar radiculopathy with lumbar degenerative disk disease, lumbar spinal stenosis. HISTORY OF PRESENT ILLNESS: The patient is a 63-year-old male who returns for followup status post lumbar epidural steroid injection x 2, most recently 01/16/2018. The patient did very well about 70% improvement until about 3 weeks ago. The patient reports the pain began to return in the low back, more on the right side than the left, radiating to the anterior thigh, medial thigh, posterior gluteus and medial lower leg on the right greater than left. The patient reports it is aching, dull, tight across the back with constant pain and then radiating and shooting pain, which is stabbing and cramping in the right leg. The patient reports it is 8 on a scale of 10 at its worst, 6 on average, 4 at its least and is a 4 today. The patient reports no loss of motor function. No new motor or sensory deficits but still significant pain. It has been returning. Before that, he was doing great with distance walking, able to do work activities with much greater ease and comfort as well as household activities, traveling, sleeping much better. The patient reports now, it is awakening him about every 4 hours. The patient reports no new changes or other complaints. PHYSICAL EXAMINATION: VITAL SIGNS: The patient's blood pressure 131/78, pulse 85, respirations 16, temperature is 97.9 degrees Fahrenheit, height 5 feet 6 inches, weight 161 pounds. GENERAL: The patient is awake, alert, oriented, appropriate, very pleasant demeanor. HEENT: Head shows normocephalic, atraumatic. Extraocular muscles are intact and symmetrical. Oral cavity, mucous membranes moist and pink. Dentition is intact. NECK: Shows anterior throat supple without palpable lymphadenopathy noted. Swallow reflex is normal and symmetrical. CHEST: Shows normal on inspection. Breath sounds clear to auscultation bilaterally. HEART: Shows S1, S2 clear. No murmurs auscultated. ABDOMEN: Soft, nontender, nondistended. No palpable organomegaly is noted. No rebound or guarding demonstrated. BACK: Shows spine grossly in the midline. The patient's back shows good rotational motion of lumbar spine, both laterally greater than 10 degrees right and left as well as extension greater than 10 degrees, forward flexion 45 degrees without significant difficulty or pain reported. No tenderness over the sacrum or sacroiliac regions or the spinous processes. EXTREMITIES: The patient's lower extremities show deep tendon reflexes at 1+ patellar and tendo calcaneus tendons are equal. Motor exam is strong with 5/5 dorsiflexion, extension, quadriceps and hamstring flexion and symmetrical as well. The patient's peripheral pulses are 1+ posterior tibia. No peripheral edema is noted bilaterally. Options were discussed with the patient. The patient's old chart was reviewed as his current medication regimen and updated. Current review of systems is updated today as well. We will proceed with a lumbar epidural steroid injection today with fluoroscopic guidance. Risks were again discussed including, but not limited to bleeding, infection, possibility of epidural hematoma and subsequent neurological compromise, dural puncture, headaches, spinal cord and/or nerve damage, side effects of steroid medication and poor results regarding pain control. The patient understands and wished to proceed. The patient will return to clinic in approximately 2 weeks for followup. He was counseled to return appointment, activity level and side effects to be aware of. DIAGNOSIS: Lumbar radiculopathy with lumbar degenerative disk disease, lumbar spinal stenosis. PROCEDURE: Lumbar epidural steroid injection, translaminar approach, L4-L5 level using C-arm fluoroscopic guidance under sterile prep and drape using local anesthetic. MEDICATION INJECTED: A total of 120 mg Depo-Medrol plus 10 mL of preservative-free normal saline and 2 mL of Isovue for contrast. CONDITION AT DISCHARGE: Stable. The patient tolerated the procedure well, had no complications. LUCIANO HAMMONDS MD DR: ADAN/cuca JOB#: [id number] / [id number]
== END | disposition home or self-care (01) ==
LOC: PNCL 08:52
PROVIDERS: ATTEND Anesthesiology
DX: M51.16 Intervertebral disc disorders with radiculopathy, lumbar region (principal); M48.061 Spinal stenosis, lumbar region without neurogenic claudication; Z88.8 Allergy status to other drugs, medicaments and biological substances
CPT/HCPCS: 62323; J1030; J1040; Q9965

== ENCOUNTER → 2018-08-14 | Outpatient (CLI) | payer MEDICARE ==
[2017-04-24 12:14] VITALS: BP 174/95
--- NOTE | 2018-08-15 00:11 | PAIN ---
DATE OF SERVICE: 08/14/2018 PROGRESS NOTE FOR PAIN CLINIC: DIAGNOSES: Lumbar radiculopathy with lumbar degenerative disk disease and lumbar spinal stenosis. HISTORY OF PRESENT ILLNESS: The patient is a 63-year-old male who returns for followup status post lumbar epidural steroid injection x 1 on 06/20/2018. The patient did very well with this with about an 80% improvement initially, now about 40% improvement overall. The patient reports the pain has been returning. He has been having some active shifts at work lately and has had pain in the low back and bilaterally now, more on the right than the left, but present bilaterally across the low back into the posterior gluteus, posterior lateral thigh, lateral anterior thigh, medial thigh, is aching and constant, becoming more shooting pain in the legs, but mostly across the low back. The patient reports it is an 8 on a scale of 10 at its worst, 7 on average and a 4 at its least and is a 7 today. The patient reports no new motor or sensory deficits, no new bowel or bladder incontinence or other complaints. It has been awakening him from sleep occasionally. Initially, he had increased distance walking, doing work activities, household activities, recreational activities with much greater ease and comfort, now is becoming more noticeable as time goes on. The patient reports no new motor or sensory deficits, no bowel or bladder incontinence or other complaints. PHYSICAL EXAMINATION: VITAL SIGNS: The patient's blood pressure is 142/90, pulse 103, respirations 18, temperature 98.4 degrees Fahrenheit, height is 5 feet 6 inches and weight 159 pounds. GENERAL: The patient is awake, alert, oriented, appropriate, very pleasant demeanor. HEENT: Head is normocephalic, atraumatic. Extraocular movements are intact, symmetrical. Oral cavity: Mucous membranes moist and pink. Dentition is intact. NECK: Shows anterior throat supple without palpable lymphadenopathy noted. Swallow reflex is symmetrical. CHEST: Shows normal with inspection. Breath sounds clear to auscultation bilaterally. HEART: Shows S1, S2 clear. No murmurs auscultated. ABDOMEN: Soft, nontender, nondistended. No palpable organomegaly is noted. No rebound or guarding demonstrated. BACK: Shows spine grossly in the midline. Normal appearing thoracic kyphosis and cervical lordotic curvature. Lumbar curvature is normal in lordotic fashion as well. Lumbar paraspinous muscle shows symmetrical on inspection, on palpation shows some moderate tenderness diffusely without radiation, but diffusely tender in the lower lumbar distribution bilaterally, slightly worse on the right than the left with no asymmetry, no trigger points. No atrophy or hypertrophy. The patient has good rotational motion of lumbar spine without the pain both laterally as well as extension and flexion. EXTREMITIES: The patient's lower extremities show deep tendon reflexes 1+ in the patellar and tendo calcaneus tendons. Motor exam is strong with 5/5 dorsiflexion, extension, quadriceps and hamstring flexion and symmetrical. Peripheral pulses are 1+ posterior tibial. No peripheral edema is noted bilaterally. Options were discussed with the patient. The patient's old chart was reviewed as well as his current medication regimen updated. Current review of systems updated today as well. We will proceed with a first in the series of lumbar epidural steroid injection today with fluoroscopic guidance. Risks were again discussed including, but not limited to bleeding, infection, possibility of epidural hematoma, subsequent neurologic compromise, dural puncture, headaches, spinal cord and/or nerve damage, side effects of steroid medication and poor results regarding pain control. The patient understands and wished to proceed. The patient will return to clinic in approximately 2 weeks for followup. He was counseled as to return appointment, activity level and side effects to be aware of. DIAGNOSES: Lumbar radiculopathy with lumbar degenerative disk disease, lumbar spinal stenosis. PROCEDURE: Lumbar epidural steroid injection, translaminar approach at the L4-L5 level using C-arm fluoroscopic guidance under sterile prep and drape using local anesthetic. MEDICATION INJECTED: A total of 120 mg Depo-Medrol plus 10 mL of preservative-free saline, and 2 mL of contrast. CONDITION AT DISCHARGE: Stable. The patient tolerated procedure well, had no complications. LUCIANO HAMMONDS MD DR: ADAN/cuca JOB#: [id number] / [id number]
== END | disposition home or self-care (01) ==
LOC: PNCL 13:04
PROVIDERS: ATTEND Anesthesiology
DX: M51.16 Intervertebral disc disorders with radiculopathy, lumbar region (principal); M48.061 Spinal stenosis, lumbar region without neurogenic claudication; Z88.5 Allergy status to narcotic agent
CPT/HCPCS: 62323; J1030; J1040; Q9965

== ENCOUNTER → 2018-11-19 | Outpatient (CLI) | payer MEDICARE ==
[2017-04-24 12:14] VITALS: BP 174/95
--- NOTE | 2018-11-19 11:58 | PAIN ---
DATE OF SERVICE: 11/19/2018 PROGRESS NOTE FOR PAIN CLINIC DIAGNOSES: Lumbar radiculopathy with lumbar degenerative disk disease and lumbar spinal stenosis. HISTORY OF PRESENT ILLNESS: The patient is a 63-year-old male who returns for followup status post lumbar epidural steroid injection x 1. The patient reports about 80% improvement initially and he was playing some baseball over the past week, had injured himself with a concussion also has increasing pain in his low back and bilateral lower extremities, worse on the right than the left, but present bilaterally. The patient reports no new motor or sensory deficits. Reports the pain is radiating to posterior gluteus, posterior lateral thigh, anterior thighs, medial thighs, medial lower legs. The patient reports it is aching, dull, tight, shooting, radiating, becoming more constant with walking, standing, changing positions, better with sitting or lying down, does awaken from sleep about every 4 hours. The patient reports the pain is a 9 on a scale of 10 at its worst in the past week, 8 on average, 7 at its least and is an 8 today. The patient reports no new motor or sensory deficits, no new changes. PHYSICAL EXAMINATION: VITAL SIGNS: The patient's blood pressure 124/79, pulse 76, respirations 18, temperature 98.3 degrees Fahrenheit, weight is 157 pounds. GENERAL: The patient is awake, alert, oriented, appropriate, very pleasant demeanor. HEENT: Shows normocephalic, atraumatic. Extraocular movements are intact and symmetrical. Oral cavity: Mucous membranes moist and pink. Dentition is intact. NECK: Shows anterior throat supple without palpable lymphadenopathy noted. Swallow reflex symmetrical. CHEST: Shows normal on inspection. Breath sounds are clear to auscultation bilaterally. HEART: Shows S1, S2 clear. No murmurs auscultated. ABDOMEN: Soft, nontender, nondistended. No palpable organomegaly is noted. No rebound or guarding demonstrated. EXTREMITIES: The patient's lower extremities show deep tendon reflexes 1+ in the patella and tendo calcaneus tendons. Motor exam is strong with 5/5 dorsiflexion, extension, quadriceps and hamstring flexion. Peripheral pulses are 1+ posterior tibia. No peripheral edema is noted bilaterally. Options were discussed with the patient. The patient's old chart was reviewed as his current medication regimen updated. Current review of systems updated today as well. We will proceed with a second in the series of lumbar epidural steroid injection today with fluoroscopic guidance. Risks were again discussed including, but not limited to bleeding, infection, possibility of epidural hematoma, subsequent neurological compromise, dural puncture, headaches, spinal cord and/or nerve damage, side effects of steroid medication and poor results regarding pain control. The patient understands and wished to proceed. The patient will return to clinic in approximately 2 weeks for followup. He was counseled on return appointment, activity level and side effects to be aware of. DIAGNOSES: Lumbar radiculopathy with lumbar degenerative disk disease, lumbar spinal stenosis. PROCEDURE: Lumbar epidural steroid injection, translaminar approach L4-L5 level using C-arm fluoroscopic guidance under sterile prep and drape using local anesthetic. MEDICATION INJECTED: A total of 120 mg Depo-Medrol plus 10 mL of preservative-free normal saline and 2 mL of contrast. CONDITION AT DISCHARGE: Stable. The patient tolerated procedure well, had no complications. LUCIANO HAMMONDS MD DR: ADAN/cuca JOB#: [id number] / [id number]
== END ==
LOC: PNCL 07:33
PROVIDERS: ATTEND Anesthesiology
DX: M51.16 Intervertebral disc disorders with radiculopathy, lumbar region (principal); M48.061 Spinal stenosis, lumbar region without neurogenic claudication
CPT/HCPCS: 62323; J1030; J1040; Q9965

== ENCOUNTER → 2018-12-11 | Outpatient (CLI) | payer MEDICARE ==
[2017-04-24 12:14] VITALS: BP 174/95
[~2018-12-11] MED LIST changes: +BUPIVACAINE MPF 0.25% 10 ML VIAL. ONE; -methylPREDNISolone ACETATE 40 MG/ML VIAL. ONE
--- NOTE | 2018-12-12 13:47 | PAIN ---
DATE OF SERVICE: 12/11/2018 PROGRESS NOTE FOR PAIN CLINIC DIAGNOSES: 1. Lumbar radiculopathy with lumbar degenerative disk disease, lumbar spinal stenosis. 2. Right shoulder joint pain with primary osteoarthritis. HISTORY OF PRESENT ILLNESS: The patient is a 63-year-old male who returns for followup status post lumbar epidural steroid injection x 2. The patient reports about 80% improvement after his last injection in the low back and leg. His chief complaint today, however, is right shoulder pain. He is having some pain in the shoulder for some time now and has had some arthroscopic surgery in the past with some diagnosis of primary osteoarthritis of the right shoulder. But it has been getting worse with time and with activity, use of motion, weightbearing and range of motion on the right arm. The patient reports it awakens him from sleep about twice a night, but not every night. Otherwise, his low back is doing much better. The right shoulder is becoming much more noticeable. The patient reports pain in the shoulder to 6 on a scale of 10 at its worst in the past week, 4 on average, 4 at its least and is a 4 today. The patient reports it is aching, dull, tingling, sometimes radiating and constant with weightbearing. He is right handed and it is bothersome with use of motion, even driving a car or lifting items with the right arm. The patient reports no loss of motor function, no new motor or sensory deficits. PHYSICAL EXAMINATION: VITAL SIGNS: The patient's blood pressure is 134/80, pulse 76, respirations are 18, temperature 98.3 degrees Fahrenheit, height is 5 feet 6 inches, weight is 157 pounds. GENERAL: The patient is awake, alert, oriented, appropriate, very pleasant demeanor. HEENT: Shows normocephalic, atraumatic. Extraocular movements are intact and symmetrical. Oral cavity: Mucous membranes moist and pink. Dentition is intact. NECK: Shows anterior throat supple without palpable lymphadenopathy noted. Swallow reflex symmetrical. CHEST: Shows normal on inspection. Breath sounds are clear to auscultation bilaterally. HEART: Shows S1, S2 clear. No murmurs auscultated. ABDOMEN: Soft, nontender, nondistended. No palpable organomegaly is noted. No rebound or guarding demonstrated. BACK: Shows spine grossly in the midline, normal-appearing cervical lordotic curvature, thoracic kyphotic curvature and lumbar lordotic curvature. Lumbar paraspinous muscle shows symmetrical on inspection, with palpation shows some mild tenderness throughout the upper, middle and lower distribution of paraspinous muscles, but only diffusely without radiation. The patient has good rotational motion of lumbar spine, both laterally as well as extension and flexion without difficulty. EXTREMITIES: The patient's upper extremities show deep tendon reflexes 2+ in the biceps, triceps tendons. Motor exam is strong with bracelet former strength, bicep and tricep flexion 5/5, some moderate tenderness with shoulder shrug on the right side with resistance, but no loss of strength on resistance, also with abduction of the shoulder to 90 degrees with some fairly significant tenderness in the right shoulder itself with resistance, but no loss of strength. The patient has good rotational motion both actively and passively of the right shoulder and left shoulder without ratcheting or crepitus. Peripheral pulses are 2+ radial distribution. No peripheral edema is noted. Options were discussed with the patient. The patient's old chart was reviewed as his current medication regimen updated. Current review of systems updated today as well. We will proceed with a right intra-articular shoulder joint injection with fluoroscopic guidance. Risks were again discussed including, but not limited to bleeding, infection, possibility of intravascular injection sequelae, spread of local anesthetic and numbness, side effects of steroid medication and poor results regarding pain control. The patient understands and wished to proceed. The patient will return to the clinic in approximately 2 weeks for followup. He was counseled on return appointment, activity level and side effects to be aware of. DIAGNOSES: 1. Lumbar radiculopathy with lumbar degenerative disk disease and lumbar spinal stenosis. 2. Right shoulder joint pain with primary osteoarthritis, right shoulder joint. PROCEDURE: Right intra-articular shoulder joint injection using C-arm fluoroscopic guidance under sterile prep and drape using local anesthetic. MEDICATION INJECTED: A total of 80 mg Depo-Medrol plus 3 mL of 0.25% bupivacaine and 1.5 mL of isovue for contrast. CONDITION AT DISCHARGE: Stable. The patient tolerated the procedure well, had no complications. LUCIANO HAMMONDS MD DR: ADAN/cuca JOB#: [id number] / [id number]
== END ==
LOC: PNCL 13:37
PROVIDERS: ATTEND Anesthesiology
DX: M19.011 Primary osteoarthritis, right shoulder (principal); M51.16 Intervertebral disc disorders with radiculopathy, lumbar region; M48.061 Spinal stenosis, lumbar region without neurogenic claudication
CPT/HCPCS: 20610; 77002; J1040; J3490; Q9965

== ENCOUNTER → 2019-03-24 | Outpatient (CLI) | payer MEDICARE ==
[2017-04-24 12:14] VITALS: BP 174/95
[~2019-03-24] MED LIST changes: -BUPIVACAINE MPF 0.25% 10 ML VIAL. ONE; -IOHEXOL 180 MG/ML 10 ML VIAL. ONE; +OMEP-229 PO; -OMEP20CA10 PO; +OMEP40CA45 PO; -OMEP40CA5 PO; -methylPREDNISolone ACETATE 80 MG/ML VIAL. ONE
--- NOTE | 2019-03-24 13:04 | RAD ---
Bilateral lower extremity arterial ultrasound History: Leg pain. Swelling of the extremities bilaterally. Findings: Multiple grayscale, color, and duplex spectral analysis sonographic images were acquired of the lower extremity arteries bilaterally. There are no previous similar exams. Mild intimal thickening and minimal atheromatous involvement of the bilateral lower extremity arterial vasculature is noted. Triphasic flow bilaterally is seen however. Velocities in cm/sec: RIGHT Common femoral artery 119 Profunda femoris artery 59 Proximal SFA 78 Mid SFA 87 Distal SFA 102 Popliteal artery 59 Anterior tibial artery 61 Dorsalis pedis artery 72 Posterior tibial artery 70 Peroneal artery 57 LEFT: Common femoral artery 95 Profunda femoris artery 46 Proximal SFA 67 Mid SFA 86 Distal SFA 89 Popliteal artery 85 Anterior tibial artery 80 Dorsalis pedis artery 79 Posterior tibial artery 49 Peroneal artery 72 Impression: 1. No hemodynamically significant stenosis or other suspicious findings. Electronically signed by: Jignesh Pantoja MD (03/24/2019 1:01 PM) [facility]
--- NOTE | 2019-03-24 14:28 | RAD ---
MR#: [id number] Date of Study: 03/24/2019 Ordering Physician: LINDA LANDEROS, Referring Physician: LINDA LANDEROS, Tech: HAY Holder, RDCO, RTR APPROVED REPORT Patient Location : OUT-PATIENT Indications Lower Extremity Pain : htn Past History Compression Stockings : Findings Grayscale images of the bilateral saphenofemoral junctions are grossly unremarkable. The right great saphenous vein measures 7.5 mm and the left great saphenous vein measures 8 mm. There is no evidence of reflux in the bilateral greater and lesser saphenous veins. There is an isolated right groin lymph node measuring 2.2 x 0.5 x 0.9 cm. Critical Notification Critical Value: No <Conclusion> 1. No significant bilateral venous reflux noted 2. Isolated right groin lymph node, correlate clinically. Signed by : Nawaf Amezquita, Electronically Approved : 03/24/2019 14:27:46
== END | disposition home or self-care (01) ==
LOC: US 08:53
PROVIDERS: ATTEND Internal Medicine Cardiovascular Disease
DX: I70.293 Other atherosclerosis of native arteries of extremities, bilateral legs (principal); M79.89 Other specified soft tissue disorders; I10 Essential (primary) hypertension
CPT/HCPCS: 93925; 93970

== ENCOUNTER → 2019-06-19 | Outpatient (CLI) | payer MEDICARE ==
[2017-04-24 12:14] VITALS: BP 174/95
[~2019-06-19] MED LIST changes: -OMEP-229 PO; +OMEP20CA16 PO; +REGADENOSON 0.4 MG/5 ML DISP.SYRIN. IV ONE
--- NOTE | 2019-06-19 11:06 | CARD ---
MR#: [id number] Date of Study: 06/19/2019 Ordering Physician: LINDA LANDEROS, Referring Physician: LINDA LANDEROS, Tech: Diana Hutchins APPROVED REPORT EXAM: Two-dimensional and M-mode echocardiogram with Doppler and color Doppler. Other Information Quality : AverageHR: 86bpm INDICATION Dyspnea RISK FACTORS Hypertension 2D DIMENSIONS RVDd3.3 (2.9-3.5cm)Left Atrium(2D)3.2 (1.6-4.0cm) IVSd1.0 (0.7-1.1cm)Aortic Root(2D)3.0 (2.0-3.7cm) LVDd4.1 (3.9-5.9cm)LVOT Diameter2.2 (1.8-2.4cm) PWd1.0 (0.7-1.1cm)LVDs3.1 (2.5-4.0cm) FS (%) 24.4 %SV36.3 ml LVEF(%)48.9 (>50%) Aortic Valve AoV Peak Danish.118.0cm/sAoV VTI19.5cm AO Peak GR.5.6mmHgLVOT Peak Danish.103.2cm/s LVOT VTI 19.42cmAO Mean GR.3mmHg NISSA (VMAX)2.20eq4WUN (VTI)3.64cm2 AI P 1/2 Ozhz599va Mitral Valve MV E Uszngsjr91.6cm/sMV E Peak Gr.114mmHg MV DECEL NIDB644ckSV A Usymsbeu567.1cm/s MV E Mean Gr.3mmHgMV CKK06rm E/A Ratio0.6MVA (PHT)3.04cm2 TDI E/Lateral E'7.5E/Medial E'9.5 Pulmonary Valve PV Peak Owhqvcfj987.3cm/sPV Peak Grad.5mmHg Tricuspid Valve TR P. Reqpqrfl000jp/sRAP BTCJPSGZ8fkRq TR Peak Gr.40juEzVCCX06rzPy Pulmonary Vein S1 Ciyujzpn32.2cm/sD2 Axrmqbrf24.9cm/s PVa qvnixphe885beeg LEFT VENTRICLE The left ventricle is normal size. There is borderline to mild concentric left ventricular hypertroph y. The left ventricular systolic function is normal and the ejection fraction is within normal range. The Ejection Fraction is 50-55%. There is normal LV segmental wall motion. Transmitral Doppler flow pattern is Grade I-abnormal relaxation pattern. RIGHT VENTRICLE The right ventricle is normal size. There is normal right ventricular wall thickness. The right ventr icular systolic function is normal. ATRIA The left atrium size is normal. The right atrium size is normal. The interatrial septum is intact wit h no evidence for an atrial septal defect or patent foramen ovale as noted on 2-D or Doppler imaging. AORTIC VALVE The aortic valve is normal in structure and function. Doppler and Color Flow revealed mild aortic reg urgitation. There is no significant aortic valvular stenosis. MITRAL VALVE The mitral valve is normal in structure and function. There is no evidence of mitral valve prolapse. There is no mitral valve stenosis. Doppler and Color-flow revealed mild mitral regurgitation. TRICUSPID VALVE The tricuspid valve is normal in structure and function. Doppler and Color Flow revealed trace tricus pid regurgitation with an estimated PAP of 27 mmHg. There is no tricuspid valve stenosis. PULMONIC VALVE The pulmonic valve is not well visualized. Doppler and Color Flow revealed mild pulmonic valvular reg urgitation. There is no pulmonic valvular stenosis. GREAT VESSELS The aortic root is normal in size. The ascending aorta is normal in size. The IVC is normal in size a nd collapses >50% with inspiration. PERICARDIAL EFFUSION There is no evidence of significant pericardial effusion. Critical Notification Critical Value: No <Conclusion> The left ventricular systolic function is normal and the ejection fraction is within normal range. Th e Ejection Fraction is 50-55%. There is normal LV segmental wall motion. Doppler and Color Flow revealed mild aortic regurgitation. Doppler and Color-flow revealed mild mitral regurgitation. Signed by : Nawaf Amezquita, Electronically Approved : 06/19/2019 11:06:19
--- NOTE | 2019-06-19 13:48 | RAD ---
MR#: [id number] Date of Study: 06/19/2019 Ordering Physician: LINDA LANDEROS, Referring Physician: CIELO HERNANDES Tech: RT Elvira (R) (N) APPROVED REPORT Test Type: Pharmacological Stress Nurse/Tech: Natasha Magana RN Test Indications: DING w/ Edema on LE Cardiac History: Hypertension, on ASA Medications: See Electronic Medical Record Medical History: See Electronic Medical Record Resting ECG: SR; Resting Heart Rate: 87 bpm Resting Blood Pressure: 128/78mmHg Pretest Chest Pain: No chest pain Nurse/Tech Notes Clear LS, S1(LOUD) S2-Pt stated he was told that he has regurgitation. This nurse could not hear murm ur at all. Consent: The procedure was explained to the patient in lay terms. Informed consent was witnessed. Jarad eout was entered into [employer]. History and Stress Test performed by Natasha Magana RN Pharm. Details Pharmacologic stress testing was performed using 0.4mg per 5ml of regadenoson given intravenously ove r 7-10 seconds. Stress Symptoms Flushing, coughing, POST EXERCISE Max Blood Pressure: 148/80mmHg Chest Pain: No. Arrhythmia: No. ST Change: No. INTERPRETATION Stress EKG Conclusion: No evidence of stress induced EKG changes. Imaging Protocol IMAGE PROTOCOL: Rest Tc-99m/stress Tc-99m 1 day Rest: Stress: Viability: Radiopharm.Tc99m EagvpdezcUh66f Sestamibi Ibgl28lUr 31mCi Duration 15min. 15min. Img Date 06/19/2019 06/19/2019 Inj-Img Plza60vkn. 60min. Rest Admin Site:IV - Left AntecubitalAdministrator:GABRIELLE Cloud Stress Admin Site: IV - Left AntecubitalAdministrator: RT Elvira (R)(N) STRESS DATA End Diast. Vol.114.0mlAv. Heart Bdne983.0bpm End Syst. Vol.30.0mlCO Index BSA0.0L/min Myocardial Zptm066.0gEject. Bwfpwymk78.0% Stress Rates Pk. Fill Rate3.73EDV/secLVtime Pk. Fill 133.47msec Pk. Empty Rate5.33ESV/secLVtime Pk. Jfmow105.30msec /3 Pk. Fill2.29EDV/sec Stress Scores Regional WT0.00Summed WT0.00 Regional WM0.00Summed WM0.00 The rest and stress images show normal perfusion, normal contraction and thickening. LV Perf. Quant 17 Seg. SSS6.00 17 Seg. SRS0.00 17 Seg. SDS6.00 Stress Defect Extent (% LAD)0.00Rest Defect Extent (% LAD)0.00Rev. Defect Extent (% LAD)0.00 Stress Defect Extent (% LCX) 21.30Rest Defect Extent (% LCX)0.00Rev. Defect Extent (% LCX)21.30 Stress Defect Extent (% RCA)1.10Rest Defect Extent (% RCA)0.00Rev. Defect Extent (% RCA)1.10 Stress Defect Extent (% DEVONTE)5.70Rest Defect Extent (% DEVONTE)0.00Rev. Defect Extent (% DEVONTE)5.70 Other Information Quality:Good Risk Assessment: Low Risk Conclusion 1. No evidence of EKG changes with stress testing. 2. Normal perfusion at stress/rest. 3. Low risk study. 4. EF > 60%. Signed by : Nawaf Amezquita, Electronically Approved : 06/19/2019 13:48:38
== END ==
LOC: ECHO 08:45
PROVIDERS: ATTEND Internal Medicine Cardiovascular Disease
DX: I08.8 Other rheumatic multiple valve diseases (principal); R06.09 Other forms of dyspnea
CPT/HCPCS: 78452; 93017; 93306; A9500; J2785

== ENCOUNTER → 2019-07-14 | Outpatient (CLI) | payer MEDICARE ==
[2017-04-24 12:14] VITALS: BP 174/95
[~2019-07-14] MED LIST changes: -REGADENOSON 0.4 MG/5 ML DISP.SYRIN. IV ONE
--- NOTE | 2019-07-14 13:22 | RAD ---
Examination: CERVICAL SPINE 2-3V History: Acute neck pain after lifting a patient Comparison/Correlation: None Findings: Total 3 images of the cervical spine were obtained. Plate and screws are noted at the C6-7 level with intervertebral disc space bone graft material at this level. No loosening. Alignment of the cervical spine is normal. No fracture or bone destruction. Dens and lateral masses are unremarkable. Dextroconvexity of the cervical spine noted. Lung apices are unremarkable. Soft tissues are unremarkable. Impression: Postoperative findings. No acute or other suspicious process. Electronically signed by: Jignesh Pantoja MD (07/14/2019 1:19 PM) [id number]
== END ==
LOC: RAD 12:09
PROVIDERS: ATTEND Nurse Practitioner Gerontology
DX: G97.82 Other postprocedural complications and disorders of nervous system (principal); M54.2 Cervicalgia
CPT/HCPCS: 72040

== ENCOUNTER → 2019-09-02 | Outpatient (CLI) | payer MEDICARE ==
[2017-04-24 12:14] VITALS: BP 174/95
[~2019-09-02] MED LIST changes: +BUPIVACAINE MPF 0.25% 10 ML VIAL. ONE; +IOHEXOL 180 MG/ML 10 ML VIAL. ONE; -OXYC15TA PO; +OXYC15TA3 PO; +methylPREDNISolone ACETATE 80 MG/ML VIAL. ONE
--- NOTE | 2019-09-02 12:26 | PAIN ---
DATE OF SERVICE: 09/02/2019 PROGRESS NOTE FOR PAIN CLINIC DIAGNOSES: 1. Lumbar radiculopathy with lumbar degenerative disk disease and lumbar spinal stenosis. 2. Right shoulder joint pain with primary osteoarthritis. HISTORY OF PRESENT ILLNESS: The patient is a 64-year-old male, who returns for followup, last seen 12/11/2018. The patient had a right shoulder joint injection. He reports that after about a week, he did very well with near 90% improvement with the right shoulder. He was able to perform his duties at work, was able to throw a ball and play catch with his son and was feeling quite a bit better. The patient reports that over the past 3 months or so, the pain is returning in the right shoulder itself, worse with activity, weightbearing, repetitive motions of the right arm, weightlifting. The patient reports it is a 10 on a scale of 10 at its worst over the past week, 8 on average and a 6 at its least and is an 8 today. The patient reports it is aching and sharp, constant, becoming more unbearable with time and activity and it is difficult for him to raise his shoulder past about 45 degrees laterally with abduction. The patient reports also some low back pain, is dull and tight, alternating in the low back as well as into the lower extremities, posterior gluteus, posterior thighs, but is secondary to the pain in the shoulder. The patient reports it still awakens him from sleep about 3 times at night. No loss of motor function, but significant limitation with ability, but is secondary to the pain on the right shoulder. PHYSICAL EXAMINATION: VITAL SIGNS: The patient's blood pressure 137/95, pulse 90, respirations 18, temperature is 98.3 degrees Fahrenheit, height is 5 feet 6 inches, weight is 157 pounds. GENERAL: The patient is awake, alert, oriented, appropriate, has very pleasant demeanor. HEENT: Shows normocephalic, atraumatic. Extraocular movements are intact and symmetrical. Oral cavity: Mucous membranes are moist and pink. Dentition is intact. NECK: Shows anterior throat supple without palpable lymphadenopathy noted. Swallow reflex symmetrical. CHEST: Shows normal on inspection. Breath sounds are clear bilaterally. HEART: Shows S1, S2 clear. No murmurs auscultated. ABDOMEN: Soft, nontender, nondistended. No palpable organomegaly is noted. BACK: Shows spine grossly in the midline, normal-appearing cervical lordotic curvature, thoracic kyphotic curvature and lumbar lordotic curvature. Lumbar paraspinous muscle shows symmetrical on inspection, on palpation shows some moderate tenderness diffusely bilaterally and diffusely without significant radiation. EXTREMITIES: The patient's lower extremities show deep tendon reflexes, 2+ in the patellar, 1+ tendo-calcaneus tendons. Motor exam is strong with 5/5 dorsiflexion, extension, and equal. Peripheral pulses are 1+ posterior tibia. No peripheral edema is noted bilaterally. The patient's upper extremities show deep tendon reflexes 2+ in the biceps and triceps tendons. Motor exam is strong with strike planning applications strength rated at 5/5. Bicep and tricep flexion is approximately 4 on a scale of 5 on the right, but 5/5 on the left. The patient shows significant tenderness with abduction of the shoulder past 45 degrees with pain in the anterior aspect of the shoulder as well as the superior aspect with passive motion is still painful with abduction, but not with forward or revert rotation and motion of the deltoid. Shoulder shrug is strong and intact without loss of strength on resistance or pain reported. Options were discussed with the patient. The patient's old chart was reviewed as his current medication regimen updated. Current review of systems updated today as well and we will proceed with a right intra-articular shoulder joint injection as he has done very well with these in the past. Risks were again discussed including but not limited to bleeding, infection, possibility of intravascular injection sequelae, spread of local anesthetic and numbness, side effects of steroid medication, exposure to fluoroscopy and poor results regarding pain control. The patient understands and wished to proceed. The patient will return to the clinic in approximately 2 weeks for followup. He was counseled on return appointment, activity level, and side effects to be aware of. DIAGNOSES: Right shoulder joint pain with primary osteoarthritis, right shoulder. PROCEDURE: Right intra-articular shoulder joint injection using C-arm fluoroscopic guidance under sterile prep and drape using local anesthetic. MEDICATION INJECTED: A total of 80 mg Depo-Medrol plus 3 mL of 0.25% bupivacaine as well as 2 mL of contrast. CONDITION AT DISCHARGE: Stable. The patient tolerated procedure well, had no complications. LUCIANO HAMMONDS MD DR: ADAN/cuca JOB#: [id number] / [id number]
== END ==
LOC: PNCL 11:27
PROVIDERS: ATTEND Anesthesiology
DX: M19.011 Primary osteoarthritis, right shoulder (principal); M51.16 Intervertebral disc disorders with radiculopathy, lumbar region; M48.061 Spinal stenosis, lumbar region without neurogenic claudication
CPT/HCPCS: 20610; 77002; J1040; J3490; Q9965

== ENCOUNTER → 2019-09-29 | Outpatient (CLI) | payer MEDICARE ==
[2017-04-24 12:14] VITALS: BP 174/95
[~2019-09-29] MED LIST changes: -BUPIVACAINE MPF 0.25% 10 ML VIAL. ONE; -IOHEXOL 180 MG/ML 10 ML VIAL. ONE; -methylPREDNISolone ACETATE 80 MG/ML VIAL. ONE
--- NOTE | 2019-09-29 12:34 | RAD ---
MR of the right shoulder HISTORY: Right shoulder pain and decreased range of motion. TECHNIQUE: Routine multiplanar sequences are obtained. FINDINGS: Acromioclavicular joint is mildly degenerative. Articular side signal along the supraspinatus and infraspinatus tendon compatible with tendinosis and some articular sided broad tearing. No measurable fluid defect or through and through rupture, however. Intraosseous cystic change at the anterior greater tuberosity likely related to chronic rotator cuff arthropathy. Trace fluid in the subdeltoid bursa. Subscapularis tendinosis without high-grade tear. Glenohumeral joint DJD. Small glenohumeral joint effusion. Degenerative tearing of the superior, posterior and inferior labrum. Degeneration or degenerative tearing of the anterior labrum. Biceps tendon is intact. No acute fracture. No aggressive bone destruction. No acute soft tissue abnormality. IMPRESSION: 1. Articular side tendinosis and partial tearing of the supraspinatus infraspinatus tendon without full-thickness tear. Subscapularis tendinosis without high-grade tear. 2. Glenohumeral joint and acromioclavicular joint DJD. 3. Circumferential labral degeneration with degenerative tearing of at least the superior, posterior and inferior quadrants. Electronically signed by: Jovanny Hernandez MD (09/29/2019 12:31 PM) [place] [id number]
== END ==
LOC: MRI 10:47
PROVIDERS: ATTEND Anesthesiology
DX: M19.011 Primary osteoarthritis, right shoulder (principal); M75.111 Incomplete rotator cuff tear or rupture of right shoulder, not specified as traumatic
CPT/HCPCS: 73221

== ENCOUNTER → 2019-11-10 | Outpatient (CLI) | payer MEDICARE ==
[2017-04-24 12:14] VITALS: BP 174/95
[~2019-11-10] MED LIST changes: +BUPIVACAINE MPF 0.5% 30 ML VIAL. ONE; +IOHEXOL 180 MG/ML 10 ML VIAL. ONE; +OXYC1TAB19 PO; +methylPREDNISolone ACETATE 80 MG/ML VIAL. ONE
--- NOTE | 2019-11-10 12:40 | PAIN ---
DATE OF SERVICE: PROGRESS NOTE FOR PAIN CLINIC DIAGNOSES: 1. Lumbar radiculopathy with lumbar degenerative disk disease and lumbar spinal stenosis. 2. Right shoulder joint pain with primary osteoarthritis. HISTORY OF PRESENT ILLNESS: The patient is a 64-year-old male who returns for followup status post right shoulder joint injection on 09/02/2019. The patient reports he did fairly well with this, but was not quite as effective as one he had had in the right shoulder in November of last year. The patient reports still has significant pain in the right shoulder and was worse with repetitive motions, lifting, raising his shoulder to the side or to the front, trying to throw such as a baseball very painful where he cannot actually throw it very far at all. The patient reports the pain is a 10 on a scale of 10 at its worst over the past week, 7 on average, 5 at its least and is a 7 today. The patient reports it is aching, sharp, alternating with dull and stabbing, can be constant in the right shoulder itself. The patient reports no loss of motor function, but significant fatigability and limitation of rotation of motion with his right shoulder secondary to pain. The patient reports no other changes. Low back still painful, but much more painful in the right shoulder. The patient reports no new motor or sensory deficits, no new bowel or bladder incontinence. PHYSICAL EXAMINATION: VITAL SIGNS: The patient's blood pressure is 134/83, pulse 81, respirations 20, temperature 98.1 degrees Fahrenheit, height is 5 feet 6 inches, weight is 152 pounds. GENERAL: The patient is awake, alert, oriented, appropriate, very pleasant demeanor. HEENT: Shows normocephalic, atraumatic. Extraocular movements are intact and symmetrical. Oral cavity: Mucous membranes moist and pink. NECK: Shows anterior throat supple without palpable lymphadenopathy noted. Swallow reflex symmetrical. CHEST: Shows normal on inspection. Breath sounds are clear bilaterally. HEART: Shows S1, S2 clear. No murmurs are auscultated. ABDOMEN: Soft, nontender and nondistended. BACK: Shows spine grossly in the midline. Neck shows full rotational motion of cervical spine, both laterally as well as extension and flexion of the lower lumbar spine shows normal to slightly flattened lumbar lordotic curvature. Lumbar paraspinous muscle shows symmetrical on inspection, with palpation shows some moderate tenderness diffusely bilaterally going diffusely without significant radiation. The patient has good rotational motion of lumbar spine as well, both laterally as well as extension and flexion without significant difficulty. EXTREMITIES: The patient's lower extremities show deep tendon reflexes at 2+ in the patellar, 1+ tendo-calcaneus tendons. Motor exam is 5/5 with dorsiflexion, extension, quadriceps and hamstring flexion. Upper extremities show greeter guest services strength 5/5 as is bicep and tricep flexion. Right shoulder shows significant tenderness with abduction past about 45 degrees with significant pain with resistance. This is less painful with adduction with shoulder shrug. Again, no loss of strength on resistance, but significant pain in the right shoulder itself. Also, palpable on the anterior and posterior aspect of the glenohumeral joint as well, very tender with direct palpation. No specific ratcheting or crepitus noted to the joint with rotation of motion passively. Peripheral pulses are 2+ radial. No peripheral edema is noted. Options were discussed with the patient. The patient's old chart was reviewed as his current medication regimen updated. Current review of systems updated today as well and we will proceed with a right shoulder joint injection today with fluoroscopic guidance. Risks were again discussed including, but not limited to bleeding, infection, possibility of intravascular injection sequelae, spread of local anesthetic and numbness, side effects of steroid medication, exposure to fluoroscopy and poor results regarding pain control. The patient understands and wished to proceed. The patient will return to clinic in approximately 2 weeks for followup, was counseled on return appointment, activity level and side effects to be aware of. DIAGNOSIS: Right shoulder joint pain with primary osteoarthritis, right glenohumeral shoulder joint. PROCEDURE: Right intra-articular shoulder joint injection using C-arm fluoroscopic guidance under sterile prep and drape using local anesthetic. MEDICATION INJECTED: Total of 80 mg Depo-Medrol plus 3 mL of 0.25% bupivacaine and 1.5 mL of contrast. CONDITION AT DISCHARGE: Stable. The patient tolerated procedure well, had no complications. LUCIANO HAMMONDS MD DR: ADAN/cuca JOB#: [id number] / [id number]
== END | disposition home or self-care (01) ==
LOC: PNCL 11:10
PROVIDERS: ATTEND Anesthesiology
DX: M19.011 Primary osteoarthritis, right shoulder (principal); M51.16 Intervertebral disc disorders with radiculopathy, lumbar region; M48.061 Spinal stenosis, lumbar region without neurogenic claudication; Z88.8 Allergy status to other drugs, medicaments and biological substances; Z79.899 Other long term (current) drug therapy
CPT/HCPCS: 20610; 77002; J1040; J3490; Q9965

== ENCOUNTER → 2019-12-24 | Outpatient (CLI) | payer MEDICARE ==
[2017-04-24 12:14] VITALS: BP 174/95
[~2019-12-24] MED LIST changes: +ASPI-886 PO; -BUPIVACAINE MPF 0.5% 30 ML VIAL. ONE; +methylPREDNISolone ACETATE 40 MG/ML VIAL. ONE
--- NOTE | 2019-12-24 09:24 | PDOC ---
Progress Note - Pain Clinic Date of Service: DOS: DATE: 12/24/19 TIME: 09:21 Diagnosis: Dx: Lumbar radiculopathy with lumbar degenerative disc disease and lumbar spinal stenosis Right shoulder joint pain with primary osteoarthritis History or Present Illness: HPI: 64-year-old male returns follow-up status post right shoulder joint injection as well as previous lumbar epidural steroid injections. 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 Patient reports no new motor or sensory deficits no new bowel or bladder incontinence or other complaints. Physical Exam: VS: Blood pressure is 137/70 pulse 53 respirations are 18 temperature 98.7 F height is 5 feet 6 inches weight is 151 pounds PE: PHYSICAL EXAMINATION: GENERAL: The patient is awake, alert, oriented, appropriate, very pleasant demeanor HEENT: Shows normocephalic, atraumatic. Extraocular movements are intact and symmetrical. Oral cavity: Mucous membranes moist and pink NECK: Shows anterior throat supple without palpable lymphadenopathy noted. Swallow reflex symmetrical. CHEST: Shows normal on inspection. Breath sounds are clear bilaterally, no rales rhonchi or wheezes auscultated. HEART: Shows S1, S2 clear. No murmurs auscultated. ABDOMEN: Soft, nontender, nondistended. No palpable organomegaly is noted. No rebound or guarding demonstrated. BACK: Shows spine grossly in the midline. Normal-appearing cervical lordotic curvature. There is slightly increased thoracic kyphosis, some minor flattening of the lumbar lordotic curvature. Lumbar paraspinous muscles show symmetrical on inspection, on palpation shows some moderate tenderness diffusely throughout the upper, middle and lower distribution of the paraspinous muscles bilaterally, but without specific trigger points, without radiation of pain. The patient has good rotational motion of the lumbar spine, both laterally as well as extension and flexion without significant difficulty. No tenderness over the spinous processes, sacrum or sacroiliac regions. EXTREMITIES: Lower extremities show deep tendon reflexes 1+ in the patellar and tendo calcaneus tendons. Motor exam is 5 on a scale of 5 with right dorsiflexion, extension, quadriceps and hamstring flexion and 5/5 on the left. Peripheral pulses are 1+ posterior tibial. No peripheral edema is noted bilaterally. Lower extremities are warm and dry to touch, equal in color and appearance. SKIN: Shows warm and dry, good turgor. No edema. No sores, rashes or bruising throughout. Procedure: Procedure: Options were discussed with the patient. Patient will chart reviewed his his current medication regimen updated current review of systems updated today as well. We will proceed with a first in the series lumbar epidural steroid traction today with fluoroscopic guidance. Risks were discussed including but not limited to: Bleeding, infection, possibility of epidural hematoma and subsequent neurological compromise, dural puncture, headaches, spinal cord and/or nerve damage, side effects of steroid medication, and poor results regarding pain control. Patient understands wished to proceed. Patient return to clinic in approximately 2 weeks for follow-up with counselors return appointment active level and side effects to be aware of. Medication Injected: Med Injected: Procedure is lumbar epidural steroid injection under local anesthetic using sterile prep and drape at the L4-5 level using C-arm fluoroscopic guidance in both AP and lateral views medications injected is 120 mg Depo-Medrol + 10 mL preservative-free normal saline and 2 mL contrast- condition at discharge is stable patient tolerated procedure well had no complications. Condition at Discharge: Condition at Discharge: Condition at discharge stable patient tolerated procedure well had no complications. LUCIANO HAMMONDS MD Dec 24, 2019 09:24
== END | disposition home or self-care (01) ==
LOC: PNCL 08:30
PROVIDERS: ATTEND Anesthesiology
DX: M51.16 Intervertebral disc disorders with radiculopathy, lumbar region (principal); M48.061 Spinal stenosis, lumbar region without neurogenic claudication; M19.011 Primary osteoarthritis, right shoulder; I10 Essential (primary) hypertension; Z88.8 Allergy status to other drugs, medicaments and biological substances; Z79.899 Other long term (current) drug therapy; Z98.890 Other specified postprocedural states
CPT/HCPCS: 62323; J1030; J1040; Q9965

== ENCOUNTER → 2020-01-12 | Outpatient (CLI) | payer MEDICARE ==
[2017-04-24 12:14] VITALS: BP 174/95
--- NOTE | 2020-01-12 11:23 | PDOC ---
Progress Note - Pain Clinic Date of Service: DOS: DATE: 01/12/20 TIME: 11:19 Diagnosis: Dx: Lumbar radiculopathy with lumbar degenerative disc disease and lumbar spinal stenosis Right shoulder joint pain with osteoarthritis History or Present Illness: HPI: 64-year-old male returns follow-up status post lumbar epidural steroid injection x1. Patient reports only about 50% improvement in the low back and left lower extremity pain, patient reports is been increasing the low back rating the left hip and left lower extremity posterior gluteus lateral thigh anterior thigh medial thigh and hip on the left lateral side as well patient reports is a 9 on scale 10 is worse over the past week 9 on average 7 its least is a 9-day. Patient reports aching sharp dull burning in the back stabbing in the leg can be constant and severe at times with walking standing. Patient ports better with sitting or laying down has been waking up from sleep about every 5 hours or so. Patient reports no new motor or sensory deficits no new bowel or bladder incontinence or other complaints Physical Exam: VS: Blood pressure is 159/91 pulse 90 respirations 16 temperature 98.9 F height is 5 feet 6 inches weight is 149 pounds PE: PHYSICAL EXAMINATION: GENERAL: The patient is awake, alert, oriented, appropriate, very pleasant demeanor HEENT: Shows normocephalic, atraumatic. Extraocular movements are intact and symmetrical. NECK: Shows anterior throat supple without palpable lymphadenopathy noted. Swallow reflex symmetrical. CHEST: Shows normal on inspection. Breath sounds are clear bilaterally. HEART: Shows S1, S2 clear. No murmurs auscultated. ABDOMEN: Soft, nontender, nondistended. No palpable organomegaly is noted. No rebound or guarding demonstrated. BACK: Shows spine grossly in the midline. Normal-appearing cervical lordotic curvature. There is slightly increased thoracic kyphosis, some minor flattening of the lumbar lordotic curvature. Lumbar paraspinous muscles show symmetrical on inspection, on palpation shows some moderate tenderness diffusely throughout the upper, middle and lower distribution of the paraspinous muscles bilaterall without trigger points, without radiation of pain. The patient has good rotational motion of the lumbar spine, both laterally as well as extension and flexion without significant difficulty. No tenderness over the spinous processes, sacrum or sacroiliac regions. EXTREMITIES: Lower extremities show deep tendon reflexes 1+ in the patellar and tendo calcaneus tendons. Motor exam is 5 on a scale of 5 with right dorsiflexion, extension, quadriceps and hamstring flexion and 5/5 on the left. Peripheral pulses are 1+ posterior tibial. No peripheral edema is noted bilaterally. Lower extremities are warm and dry to touch, equal in color and appearance. SKIN: Shows warm and dry, good turgor. No edema. No sores, rashes or bruising throughout. Procedure: Procedure: Options were discussed with the patient. Patient will chart was reviewed his current medication regimen updated current review of systems updated today as well. We will proceed with a second in a series lumbar epidurals to injection today with fluoroscopic guidance. Risks were discussed including but not limited to: Bleeding, infection, possibility of epidural hematoma and subsequent neurological compromise, dural puncture, headaches, spinal cord and/or nerve damage, side effects of steroid medication, and poor results regarding pain control. Patient understands wished to proceed. Patient return to clinic in approximate 2 weeks for follow-up was counseled as return appointment activity level and side effects to be aware of. Medication Injected: Med Injected: Procedure is lumbar epidural steroid injection under local anesthetic using sterile prep and drape at the L4-5 level using C-arm fluoroscopic guidance in both AP and lateral views medications injected is 120 mg Depo-Medrol + 10 mL preservative-free normal saline and 2 mL contrast- condition at discharge is stable patient tolerated procedure well had no complications. Condition at Discharge: Condition at Discharge: Condition at discharge stable patient tolerated procedure well had no complications. LUCIANO HAMMONDS MD Jan 12, 2020 11:23
== END | disposition home or self-care (01) ==
LOC: PNCL 10:28
PROVIDERS: ATTEND Anesthesiology
DX: M51.16 Intervertebral disc disorders with radiculopathy, lumbar region (principal); M48.061 Spinal stenosis, lumbar region without neurogenic claudication; M19.011 Primary osteoarthritis, right shoulder; Z98.890 Other specified postprocedural states; Z88.8 Allergy status to other drugs, medicaments and biological substances
CPT/HCPCS: 62323; J1030; J1040; Q9965

== ENCOUNTER → 2020-02-11 | Outpatient (CLI) | payer MEDICARE ==
[2017-04-24 12:14] VITALS: BP 174/95
--- NOTE | 2020-02-11 12:56 | PDOC ---
Progress Note - Pain Clinic Date of Service: DOS: DATE: 02/11/20 TIME: 12:53 Diagnosis: Dx: Lumbar radiculopathy with lumbar spinal stenosis and lumbar degenerative disc disease History or Present Illness: HPI: 64-year-old male returns follow-up status post lumbar epidural steroid injections x2. Patient reports about 50% improvement overall his low back and left lower extremity pain still with pain low back rating the posterior gluteus lateral thigh lateral anterior thigh anterior medial thigh medial lower leg mostly on the left with some pain on the right as well. Patient reports she has no new motor or sensory deficits no new bowel or bladder incontinence but still significant pain rated as a 9 on scale 10 is worse over the past week 8 on average 5 its least and is an 8 today. Patient describes pain as aching dull tight shooting in the leg radiating at times constant and severe at times as wel l. Patient reports no new motor or sensory deficits no new bowel or bladder incontinence reports is still awakening from sleep at night but very infrequently. Initially reaching much better distance walking doing work activities household activities greater ease and comfort now the pain is returning. Physical Exam: VS: Blood pressure 137/90 pulse 99 respirations 16 temperature 98.4 F height 5 feet 6 inches weight is 150 pounds PE: PHYSICAL EXAMINATION: GENERAL: The patient is awake, alert, oriented, appropriate, very pleasant demeanor HEENT: Shows normocephalic, atraumatic. Extraocular movements are intact and symmetrical. Oral cavity: Mucous membranes moist and pink. Dentition is intact. NECK: Shows anterior throat supple without palpable lymphadenopathy noted. Swallow reflex symmetrical. CHEST: Shows normal on inspection. Breath sounds are clear bilaterally, no rales rhonchi or wheezes. HEART: Shows S1, S2 clear. No murmurs auscultated. ABDOMEN: Soft, nontender, nondistended. No palpable organomegaly is noted. No rebound or guarding demonstrated. BACK: Shows spine grossly in the midline. Normal-appearing cervical lordotic curvature. There is slightly increased thoracic kyphosis, some minor flattening of the lumbar lordotic curvature. Lumbar paraspinous muscles show symmetrical on inspection, on palpation shows some moderate tenderness diffusely throughout the upper, middle and lower distribution of the paraspinous muscles without specific trigger points, without radiation of pain. The patient has good rotational motion of the lumbar spine, both laterally as well as extension and flexion without significant difficulty. No tenderness over the spinous processes, sacrum or sacroiliac regions. EXTREMITIES: Lower extremities show deep tendon reflexes 1+ in the patellar and tendo calcaneus tendons. Motor exam is 5 on a scale of 5 with right dorsiflexion, extension, quadriceps and hamstring flexion and 5/5 on the left. Peripheral pulses are 1+ posterior tibial. No peripheral edema is noted bilaterally. Lower extremities are warm and dry to touch, equal in color and appearance. The patient is able to stand, stand on her toes without significant difficulty but does walk with a slight favoring gait favoring the left lower extremity without any assistive devices. SKIN: Shows warm and dry, good turgor. No edema. No sores, rashes or bruising throughout. Procedure: Procedure: Options were discussed with the patient. Patient's old chart was reviewed his his current medication regimen updated current review of systems updated today as well. We will proceed with a third in the series lumbar epidural steroid injection today with fluoroscopic guidance. Risks were discussed including but not limited to: Bleeding, infection, possibility of epidural hematoma and subsequent neurological compromise, dural puncture, headaches, spinal cord and/or nerve damage, side effects of steroid medication, and poor results regarding pain control. Patient understands wished to proceed. Patient will return to clinic in possibly 2 weeks for follow-up, was counseled as to return appointment activity level and side effects to be aware of. Medication Injected: Med Injected: Procedure is lumbar epidural steroid injection under local anesthetic using sterile prep and drape at the L4-5 level using C-arm fluoroscopic guidance in both AP and lateral views medications injected is 120 mg Depo-Medrol + 10 mL preservative-free normal saline and 2 mL contrast- condition at discharge is stable patient tolerated procedure well had no complications. Condition at Discharge: Condition at Discharge: Condition at discharge is stable patient tolerated procedure well and had no complications. LUCIANO HAMMONDS MD Feb 11, 2020 12:56
== END ==
LOC: PNCL 11:27
PROVIDERS: ATTEND Anesthesiology
DX: M51.16 Intervertebral disc disorders with radiculopathy, lumbar region (principal); M48.061 Spinal stenosis, lumbar region without neurogenic claudication; I10 Essential (primary) hypertension; Z88.8 Allergy status to other drugs, medicaments and biological substances; Z79.899 Other long term (current) drug therapy
CPT/HCPCS: 62323; J1030; J1040; Q9965

== ENCOUNTER → 2020-02-17 | Outpatient (CLI) | payer MEDICARE ==
[2017-04-24 12:14] VITALS: BP 174/95
[~2020-02-17] MED LIST changes: -IOHEXOL 180 MG/ML 10 ML VIAL. ONE; -methylPREDNISolone ACETATE 40 MG/ML VIAL. ONE; -methylPREDNISolone ACETATE 80 MG/ML VIAL. ONE
--- NOTE | 2020-02-17 11:13 | RAD ---
LUMBAR SPINE WO CONTRAST History: Reason: LBP, LEFT LEG RADICULOPATHY / Spl. Instructions: / History: Technique: Multiplanar, multi sequential MR imaging was performed of the lumbar spine. Comparison: None Findings: Mild retrolisthesis L2 on L3. Mild degenerative endplate edema L2-L3. Normal vertebral body height. No fracture. Conus terminates at the normal location. No evidence of nerve root clumping. Ectasia of the infrarenal abdominal aorta. L1-L2: Small disc bulge. No canal or neuroforaminal narrowing. L2-L3: Retrolisthesis. Broad-based disc bulge. Moderate to severe canal narrowing. Severe bilateral subarticular recess narrowing. Left foraminal superimposed disc protrusion. Mild left neuroforaminal narrowing. No right neuroforaminal narrowing. Mild facet arthropathy. L3-L4: Small posterior disc osteophyte complex. Bilateral subarticular recess narrowing, right greater than left. Abutment of the descending right L4 nerve root. Mild facet arthropathy. Mild bilateral neural foraminal narrowing. L4-L5: Posterior disc osteophyte complex. Moderate facet arthropathy. Mild subarticular recess narrowing. No canal narrowing. Moderate right and mild left neuroforaminal narrowing. L5-S1: Small disc bulge with annular fissure. Moderate to advanced facet arthropathy, left greater than right. No canal narrowing. No neuroforaminal narrowing. Impression: 1. Multilevel lumbar spondylosis most prominent L2-L3 with mild retrolisthesis. 2. L2-L3 moderate to severe canal narrowing with nerve root compression. 3. Multilevel neuroforaminal narrowing most prominent right L4-L5. Electronically signed by: Luke Mccoy DO (02/17/2020 11:10 AM) [facility]
== END | disposition home or self-care (01) ==
LOC: MRI 09:25
PROVIDERS: ATTEND Anesthesiology
DX: M47.26 Other spondylosis with radiculopathy, lumbar region (principal); M48.061 Spinal stenosis, lumbar region without neurogenic claudication; M25.78 Osteophyte, vertebrae; M12.88 Other specific arthropathies, not elsewhere classified, other specified site; Z79.82 Long term (current) use of aspirin; Z79.899 Other long term (current) drug therapy; Z88.8 Allergy status to other drugs, medicaments and biological substances
CPT/HCPCS: 72148

== ENCOUNTER → 2020-03-03 | Day surgery (SDC) | payer MEDICARE ==
[2017-04-24 12:14] VITALS: BP 174/95
[2020-03-03 13:27] LABS: BASO % 0 % (0-3); EOS % 0 % (0-3); HEMATOCRIT 38.7 % (39.0-53.0); HEMOGLOBIN 13.6 g/dL (13.0-17.5); LYMPH # 0.4 x10^3/uL (1.0-4.8); LYMPH % 3 % (24-48); MEAN CORPUSCULAR HEMOGLOBIN 34 pg (25-35); MEAN CORPUSCULAR HGB CONC 35 g/dL (31-37); MEAN CORPUSCULAR VOLUME 97 fL (79-100); MONO # 0.4 x10^3/uL (0.0-1.1); MONO % 3 % (0-9); NEUT # 12.2 x10^3/uL (1.8-7.7); NEUT % 94 % (31-73); PLATELET COUNT 189 x10^3/uL (140-400); RED BLOOD COUNT 4.01 x10^6/uL (4.30-5.70); RED CELL DISTRIBUTION WIDTH 13.6 % (11.5-14.5)
[2020-03-03 13:52] LABS: ALBUMIN 3.5 g/dL (3.4-5.0); ALBUMIN/GLOBULIN RATIO 1.1 (1.0-1.7); CALCIUM 9.6 mg/dL (8.5-10.1); CREATININE 0.8 mg/dL (0.7-1.3); POTASSIUM 3.6 mmol/L (3.5-5.1); TOTAL BILIRUBIN 0.4 mg/dL (0.2-1.0); TOTAL PROTEIN 6.7 g/dL (6.4-8.2)
--- NOTE | 2020-03-03 14:35 | EKG ---
[facility] [address] [place] [address] Test Date: 2020-03-03 Test Time: 13:58:38 Pat Name: CHICHO ONEIL Department: Room: Gender: M Test Hole Driller: : 1955 Requested By: OSMANI TORRES Order Number: [id number] Reading MD: Nawaf Amezquita MD Measurements Intervals Ophiem Rate: 87 P: 24 PA: 162 QRS: -3 QRSD: 84 T: 26 QT: 332 QTc: 405 Interpretive Statements SINUS RHYTHM Electronically Signed On 03-04-2020 11:30:54 FILTRATION OPERATOR by Nawaf Amezquita MD
[2020-03-03 14:52] LABS: % LYMPHS 3 % (24-48); % MONOS 2 % (0-10); % SEGS 95 % (35-66)
[2020-03-03 14:54] LABS: PLT ESTIMATE ADEQUATE (ADEQUATE); POLYCHROMASIA SLIGHT; TOXIC GRANULATION SLIGHT
== END | disposition home or self-care (01) ==
LOC: SURGPAT 12:37
PROVIDERS: ATTEND Neurological Surgery
DX: Z01.818 Encounter for other preprocedural examination (principal); I10 Essential (primary) hypertension; Z20.828 Contact with and (suspected) exposure to other viral communicable diseases; Z79.82 Long term (current) use of aspirin; Z79.899 Other long term (current) drug therapy; Z88.8 Allergy status to other drugs, medicaments and biological substances
CPT/HCPCS: 80053; 85007; 85025; 87641; 93005; C9803; U0003

== ENCOUNTER 2020-03-08 07:19 | Day surgery (SDC) | payer MEDICARE ==
--- NOTE | 2020-03-07 23:07 | PREOP HP ---
DATE OF SERVICE: 03/08/2020 DATE OF SURGERY: 03/08/2020 HISTORY OF PRESENT ILLNESS: The patient is a pleasant 64-year-old, who in 2015 was seen in the office. At this time, I referred him for lumbar steroid injections. He did improve to a degree. He said that he has remained very active, but that in the last few months, he began to develop marked increase in his low back pain and pain, which radiates into his left flank, hip and inguinal region after playing baseball. He said that he feels his leg may give out. He rates his pain as a 7/10. He says it is a 10/10 at its worse. He is working as a security systems engineer and he said that wearing his belt increases his pain. Activities standing too long or sitting too long are also known to cause increased pain. He has difficulty sleeping at night. He takes Percocet 7.5 and tizanidine. He has had epidural steroid injections recently without benefit. PAST MEDICAL HISTORY: Arthritis, cold sores, fever blisters, headaches or migraines, head or neck injury, hypertension, DDD, chronic pain, ED. PAST SURGICAL HISTORY: Cholecystectomy; hernia repair; laminectomy, C5-C6; the skull and neck injury and surgery in 2000 and 2002; arthroscopic surgery, right shoulder, 2005. FAMILY HISTORY: Hypertension, cancer and migraines. SOCIAL HISTORY: The patient is , employed as a security systems engineer. He has not ever smoked. He does admit to drinking alcohol 1-2 times per week. ALLERGIES: METHADONE AND TRAZODONE. CURRENT MEDICATIONS: Omeprazole, chlorthalidone, tizanidine, nortriptyline, Percocet and aspirin. REVIEW OF SYSTEMS: A 12-point review of systems was obtained and is noncontributory except that mentioned above. PHYSICAL EXAMINATION: NEUROSURGERY EXAMINATION: GENERAL APPEARANCE: Alert, pleasant, no acute distress. HEAD: Normocephalic and atraumatic. SKIN: Warm and dry. MUSCULOSKELETAL: Lumbar paraspinal muscle bulk is normal, restricted range of motion of the lumbar spine, [id number] tenderness of the lumbar spine with palpation, normal range of motion of the lower extremities bilaterally. EXTREMITIES: No clubbing, cyanosis or edema. NEUROLOGIC: Alert and oriented x 3; normal recent and remote memory; strength is 5/5 in bilateral lower extremities except for 4/5 hip flexor; sensory is intact to light touch in lower extremities bilaterally; reflexes are present and symmetric in bilateral lower extremities; markedly positive straight leg raising on the left, negative straight leg raising on the right; antalgic gait favoring his left leg. IMAGING: I reviewed a lumbar MRI scan. On that study, there is a focal disc herniation, L2-L3, with portion of the fragment extending inferiorly along the course of the left nerve root as well as associated with stenosis of the neural foramen. ASSESSMENT/ PLAN: He has a focal disc herniation with nerve root compression and severe radiculopathy. He has failed to improve with epidural steroid injections and time. My recommendation at this time is lumbar microdiscectomy at L2-L3 on the left. I did speak with him about the surgery and the risks. We also spoke about the expected postoperative course. He understands. He would like to go ahead. We will make the arrangements. OSMANI TORRES MD DR: VERONICA/cuca JOB#: [id number] / [id number] JEREMY
[~2020-03-08] VITALS: Ht 167.6 cm; Wt 68.9 kg
[~2020-03-08 07:19] MED LIST changes: +BACITRACIN 50,000 UNIT in IV NORMAL SALINE 1000ML BAG 1,000 ML IRR ONE; +DEXAMETHASONE SOD PHOS 4 MG/ML VIAL ONE; +GELATIN SPONGE SIZE 100. ONE; +GLYCOPYRROLATE 1 MG/5 ML VIAL. ONE; +IV RINGERS,LACTATED 1000ML 1,000 ML IV SCH; +KETOROLAC 60 MG/2 ML VIAL. ONE; +LIDOCAINE 1% PF 2 ML VIAL. ID PRN; +LIDOCAINE 1%/EPI 1:100,000 20 ML VIAL. ONE; +LIDOCAINE 2% PF 5 ML VIAL. ONE; +MIDAZOLAM HCL/PF 2 MG/2 ML VIAL. ONE; +NEOSTIGMINE METHYLSULFATE 5 MG/5 ML SYRINGE. ONE; +ONDANSETRON PF 4 MG/2 ML VIAL. IV PRN; +ONDANSETRON PF 4 MG/2 ML VIAL. ONE; +PHENYLEPHRINE 10 MG/ML VIAL. ONE; +PROCHLORPERAZINE 10 MG/2 ML VIAL. IV PRN; +PROPOFOL 0 ML IV ONE; +PROPOFOL 10 MG/ML (20ML) VIAL. IV ONE; +REMIFENTANIL 2 MG VIAL. IV ONE; +ROCURONIUM 50 MG/5 ML VIAL. ONE; +THROMBIN TOPICAL 20,000 UNIT SPRAY.SYRN KIT TP ONE; +VANCOMYCIN 1GM IVPB FOR OMNI 250 ML IV PRN; +fentaNYL PF VIAL 100 MCG/2 ML VIAL IV PRN; +fentaNYL PF VIAL 100 MCG/2 ML VIAL ONE
[2020-03-08] MEDS ORDERED: TIZA4TAB2 PO (09:46)
[2020-03-08] MEDS ORDERED: OXYC1TAB15 PO (09:46)
[2020-03-08] MEDS ORDERED: DOCU-109 PO (09:46)
--- NOTE | 2020-03-08 09:49 | DISCH ---
DISCHARGE INSTRUCTIONS Condition on Discharge Condition on Discharge: Stable Activity After Discharge Activity Instructions for Disc: Activity as tolerated, Avoid exertion Other activity instructions: no driving for a week Bathing Instructions: Shower-keep dressing dry Lifting Instructions after Dis: No heavy lifting, No pulling or pushing, Do not lift >10 pounds Diet after Discharge Additional Diet Restrictions: resume home diet Wound Incision Care Wound/Incision Care: Ice to area for comfort Other wound/incision instructi: may remove dressing in 48 hours if dry, no soaking Contacting the DRPeyman after DC Call your doctor for: Concerns you may have Follow-Up Follow up with: Dr. Torres's nurse in 2 weeks [phone] OSMANI TORRES MD Mar 08, 2020 09:49
[2020-03-08] MEDS ORDERED: ePHEDrine PF IN SALINE 50 MG/10 ML SYRINGE. IV ONE (09:50)
[2020-03-08] MEDS ORDERED: DESFLURANE > 120 MINUTES IH ONE (09:50)
[2020-03-08] MEDS ORDERED: PROPOFOL 50 ML IV ONE (10:09)
--- NOTE | 2020-03-08 11:00 | OP ---
DATE OF SURGERY: 03/08/2020 PREOPERATIVE DIAGNOSIS: Herniated lumbar disc left L2-L3 with severe left lumbar radiculopathy. POSTOPERATIVE DIAGNOSIS: Herniated lumbar disc, left L2-L3 with severe left lumbar radiculopathy. OPERATION PERFORMED: Hemilaminotomy and microdiscectomy, left L2-L3. The operation was done with EMG monitoring, SSEP monitoring, fluoroscopy, microscopic dissection. SURGEON: Derek Torres M.D. TOPLINE BEADING MACHINE TENDER: Chelsea Regalado APRN, assisted with the surgery. She assisted with the exposure and removal of the herniated disc. OPERATIVE INDICATIONS: The patient is a pleasant 64-year-old man who developed intractable back and left leg pain, which failed conservative measures. On imaging studies, there was a large herniated disc at L2-L3 on the left. I recommended lumbar microsurgery. I spoke with him about the surgery, the risks, technique and expected postoperative course and he wished to go ahead. DESCRIPTION OF PROCEDURE: Following general endotracheal anesthesia, the patient was positioned prone on the Cristiano table. Lumbar region prepped and draped in standard fashion. NEVIN hose and AV impulse boots were applied for DVT prophylaxis. The microscope was draped. Fluoroscopy was draped and brought in the field. The monitoring was established. Ancef 2 grams and Vanco 1 gram were given less than 1 hour prior to initiation of surgery. Using fluoroscopic guidance, a midline incision was made over the L2-L3 interspace. I dissected down through skin and subcutaneous tissue, reflected the paraspinal muscles and brought in the microscope after placing a [place] microdisk retractor. I burred down a generous hemilaminotomy. I trimmed away thickened ligamentum flavum and performed a partial foraminotomy and then I gently retracted the dura and nerve root medially. There was a large subligamentous herniated disc and I incised the ligament and then teased back and removed several fragments. I milked several fragments back out and then went to the subligamentous position and further fragments out and then continued on with my discectomy. As I worked, the region became very well decompressed. I explored carefully and assured myself of excellent decompression, the nerve was very free at this point. I irrigated with antibiotic solution. I closed the wound in layers with absorbable suture. The skin was closed with 4-0 subcuticular stitch. I felt the surgery went very, very well and the patient taken to recovery in excellent condition. DEREK TORRES MD DR: VERONICA/cuca JOB#: [id number] / [id number] JEREMY
[2020-03-08] MEDS ORDERED: MORPHINE SULFATE 2 MG/ML VIAL. ONE (11:05)
[2020-03-08] MEDS: MORPHINE SULFATE 2 MG/ML VIAL. IV PRN ×2 (11:06→11:22)
[2020-03-08] MEDS ORDERED: HYDROmorphone 2 MG/ML VIAL ONE (11:31)
[2020-03-08] MEDS: HYDROmorphone 2 MG/ML VIAL IV PRN ×3 (11:32→12:30)
[2020-03-08] MEDS ORDERED: oxyCODONE/APAP 5/325 1 TAB TABLET PO ONE ×2 (12:00)
--- NOTE | 2020-03-12 18:06 | PATHOLOGY ---
[facility] Accession Number: [id number] . 01 Material submitted: . vertebral column - LUMBAR DISC AND DECOMPRESSION . 01 Clinical history: . LUMBER HERNIATED DISC WITH RADICULOPATHY . 02 Diagnosis: Segments of fibrocartilaginous tissue and bone, lumbar disc and decompression: - Degenerative changes of fibrocartilaginous tissue. (JPM:manager oncology; 03/12/2020) MBR 03/12/2020 1543 Local . 02 Comment: There is no evidence of an acute inflammatory process or malignancy. (JPM:manager oncology; 03/12/2020) . 02 Electronically signed: . Endy Nuñez MD, Pathologist NPI- [id number] . 01 Gross description: . The specimen is received in formalin, labeled "Mia Carl, lumbar disc and decompression" and consists of muddled segments of pittman-white rubbery and gritty tissue and bone measuring 3.5 x 3.3 x 1.2 cm in aggregate. A represented portion is submitted in A1 following decalcification. (SDY; 03/10/2020) SYU/SYU 03/12/2020 1542 Local . 02 Pathologist provided ICD-10: M51.26, M54.10 . 02 CPT . 358618, [id number] Specimen Comment: A courtesy copy of this report has been sent to [phone], [phone] Specimen Comment: [id number] Specimen Comment: Report sent to / DR BEE Performed at: 01 [facility] [address], [place], [place] [id number] MD Ghassan Connors MD Phone: [phone] Performed at: 02 [facility] [address] [place], [place] [id number] MD Endy Nuñez MD Phone: [phone]
== END 2020-03-08 12:37 | disposition home or self-care (01) ==
LOC: SURG 07:19
PROVIDERS: ATTEND Neurological Surgery
DX: M51.16 Intervertebral disc disorders with radiculopathy, lumbar region (principal); I10 Essential (primary) hypertension; K21.9 Gastro-esophageal reflux disease without esophagitis; M19.90 Unspecified osteoarthritis, unspecified site; Z90.49 Acquired absence of other specified parts of digestive tract; Z98.890 Other specified postprocedural states; Z79.899 Other long term (current) drug therapy; Z79.82 Long term (current) use of aspirin; Z72.89 Other problems related to lifestyle; Z88.8 Allergy status to other drugs, medicaments and biological substances
CPT/HCPCS: 63030; 88304; 88311; 97161; J0690; J1100; J1170; J1885; J2250; J2270; J2370; J2405; J2704; J2710; J3010; J3370; J3490; J7030; J7120; 76000

== ENCOUNTER → 2020-06-16 | Outpatient (CLI) | payer MEDICARE ==
[~2020-06-16] MED LIST changes: -BACITRACIN 50,000 UNIT in IV NORMAL SALINE 1000ML BAG 1,000 ML IRR ONE; +BUPIVACAINE MPF 0.5% 30 ML VIAL. ONE; -DEXAMETHASONE SOD PHOS 4 MG/ML VIAL ONE; +DOCU-109 PO; -FLUT100D IH; +FLUT100D2 IH; -GELATIN SPONGE SIZE 100. ONE; -GLYCOPYRROLATE 1 MG/5 ML VIAL. ONE; +IOHEXOL 180 MG/ML 10 ML VIAL. ONE; -IV RINGERS,LACTATED 1000ML 1,000 ML IV SCH; -KETOROLAC 60 MG/2 ML VIAL. ONE; -LIDOCAINE 1% PF 2 ML VIAL. ID PRN; -LIDOCAINE 1%/EPI 1:100,000 20 ML VIAL. ONE; -LIDOCAINE 2% PF 5 ML VIAL. ONE; -MIDAZOLAM HCL/PF 2 MG/2 ML VIAL. ONE; -NEOSTIGMINE METHYLSULFATE 5 MG/5 ML SYRINGE. ONE; -ONDANSETRON PF 4 MG/2 ML VIAL. IV PRN; -ONDANSETRON PF 4 MG/2 ML VIAL. ONE; +OXYC1TAB15 PO; -PHENYLEPHRINE 10 MG/ML VIAL. ONE; -PROCHLORPERAZINE 10 MG/2 ML VIAL. IV PRN; -PROPOFOL 0 ML IV ONE; -PROPOFOL 10 MG/ML (20ML) VIAL. IV ONE; -REMIFENTANIL 2 MG VIAL. IV ONE; -ROCURONIUM 50 MG/5 ML VIAL. ONE; -THROMBIN TOPICAL 20,000 UNIT SPRAY.SYRN KIT TP ONE; +TIZA4TAB2 PO; -VANCOMYCIN 1GM IVPB FOR OMNI 250 ML IV PRN; -fentaNYL PF VIAL 100 MCG/2 ML VIAL IV PRN; -fentaNYL PF VIAL 100 MCG/2 ML VIAL ONE; +methylPREDNISolone ACETATE 80 MG/ML VIAL. ONE
--- NOTE | 2020-06-16 10:59 | PDOC ---
Progress Note - Pain Clinic Date of Service: DOS: DATE: 06/16/20 TIME: 10:54 Diagnosis: Dx: Lumbar radiculopathy with lumbar spinal stenosis and lumbar degenerative disc disease Right shoulder joint pain with primary osteoarthritis History or Present Illness: HPI: 65-year-old male returns for follow-up status post lumbar epidural steroid injections and has had lumbar discectomy now on March 08, 2020 with good results. Patient reports his back and feeling much better his chief complaint today however is right shoulder joint pain significant pain in the right shoulder with history of osteoarthritis. Patient reports is worse with lifting items reaching over his head throwing items as patient does play baseball. Patient reports lifting any weightbearing repetitive motions and reaching especially causes pain in the anterior and deep in the right shoulder. Patient rates pain is a 9 on scale 10 is worse over the past week 7 on average 5 its least is a 7 today patient ports is aching and sharp shooting stabbing and can be constant with weightbearing repetitive motion. Patient has difficulty with abduction of the right shoulder as well secondary to the pain. Patient reports some tremor activity in the right hand but no overt motor loss. Physical Exam: VS: Pressure 130/81 pulse 87 respirations 16 temperature 98.9 F height 5 feet 6 inches weight 159 pounds PE: PHYSICAL EXAMINATION: GENERAL: The patient is awake, alert, oriented, appropriate, very pleasant demeanor HEENT: Shows normocephalic, atraumatic. Extraocular movements are intact and symmetrical. Oral cavity: Mucous membranes moist and pink. Dentition is intact. NECK: Shows anterior throat supple without palpable lymphadenopathy noted. Swallow reflex symmetrical. CHEST: Shows normal on inspection. Breath sounds are clear bilaterally, no rales or rhonchi. HEART: Shows S1, S2 clear. No murmurs auscultated. ABDOMEN: Soft, nontender, nondistended, obese. No palpable organomegaly is noted. BACK: Shows spine grossly in the midline. Normal-appearing cervical lordotic curvature. There is slightly increased thoracic kyphosis, some minor flattening of the lumbar lordotic curvature. Well-healed surgical scars noted in the midline. Lumbar paraspinous muscles show symmetrical on inspection, on palpation shows some moderate tenderness diffusely throughout the upper, middle and lower distribution of the paraspinous muscles, but without specific trigger points, without radiation of pain. The patient has good rotational motion of the lumbar spine, both laterally as well as extension and flexion without significant difficulty. No tenderness over the spinous processes, sacrum or sacroiliac regions. EXTREMITIES: Lower extremities show deep tendon reflexes 1+ in the patellar and tendo calcaneus tendons. Motor exam is 5 on a scale of 5 with right dorsiflexion, extension, quadriceps and hamstring flexion and 5/5 on the left. Peripheral pulses are 1+ posterior tibial. No peripheral edema is noted bilaterally. Lower extremities are warm and dry to touch, equal in color and appearance. Upper extremities show deep tendon reflexes 2+ in the bicep triceps tendons are equal. Motor exam shows 5 out of 5 logistics planning engineer strength bicep and tricep flexion. Patient's right shoulder shows significant tenderness with abduction past 45 degrees and resistance but good rotation of motion both posteriorly anteriorly and laterally but is unable to abduct past about 45 degrees without significant pain. Left shoulder shows full rotation of motion without dif ficulty. SKIN: Shows warm and dry, good turgor. No edema. No sores, rashes or bruising throughout. Procedure: Procedure: Options were discussed with the patient. Patient's old chart was reviewed his his current medication regimen updated current review of systems updated today as well. We will proceed with a right glenohumeral intra-articular shoulder joint injection today with fluoroscopic guidance. Risks were discussed including but not limited to bleeding infection possibility of intravascular injection sequelae spread local anesthetic numbness side effects steroid medication special fluoroscopy and portals regarding pain control. Patient understands wished to proceed. Return to clinic in approximate 2 weeks for fol low-up was counseled as to return appointment activity level and side effects. Medication Injected: Med Injected: Under sterile prep and drape patient's right shoulder was prepped and draped and under direct visual position with fluoroscopic guidance right shoulder joint was visualized using 1% lidocaine topically anesthetized area over the medial c ompartment then 22-gauge needle was used under direct fluoroscopic visualization was entered into the shoulder joint. Stylet was removed 1.5 cc of contrast was injected with good spread within the knee joint without washout. At this time solution of 3 cc 0.5% bupivacaine and 80 mg Depo-Medrol was then injected into the shoulder without difficulty. Needle was withdrawn and sterile bandage was applied. Patient tolerated procedure well had no complications. Condition at Discharge: Condition at Discharge: Condition at discharge stable, patient tolerated the procedure well and had no complications. LUCIANO HAMMONDS MD Jun 16, 2020 10:59
--- NOTE | 2020-06-16 11:00 | PDOC4 ---
PROCEDURE Procedure Patient was consented for right intra-articular shoulder joint injection. Risks were discussed including but not limited to bleeding infection possibility of intravascular injection sequelae, spread to local anesthetic and numbness, side effects of steroid medication as well as exposure to fluoroscopy. Patient understands wished to proceed. Under sterile prep and drape patient's right shoulder was prepped and draped and under direct visual position with fluoroscopic guidance right shoulder joint was visualized using 1% lidocaine topically anesthetized area over the medial compartment then 22-gauge needle was used under direct fluoroscopic visualization was entered into the shoulder joint. Stylet was removed 1.5 cc of contrast was injected with good spread within the shoulder joint without washout. At this time solution of 3 cc 0.5% bupivacaine and 80 mg Depo-Medrol was then injected into the shoulder without difficulty. Needle was withdrawn and sterile bandage was applied. Patient tolerated procedure well had no complications. LUCIANO HAMMONDS MD Jun 16, 2020 11:00
== END | disposition home or self-care (01) ==
LOC: PNCL 09:37
PROVIDERS: ATTEND Anesthesiology
DX: M19.011 Primary osteoarthritis, right shoulder (principal); M51.16 Intervertebral disc disorders with radiculopathy, lumbar region; M48.061 Spinal stenosis, lumbar region without neurogenic claudication; I10 Essential (primary) hypertension; K21.9 Gastro-esophageal reflux disease without esophagitis; Z90.49 Acquired absence of other specified parts of digestive tract; Z98.890 Other specified postprocedural states; Z79.899 Other long term (current) drug therapy; Z79.82 Long term (current) use of aspirin; Z88.8 Allergy status to other drugs, medicaments and biological substances; Z72.89 Other problems related to lifestyle
CPT/HCPCS: 20610; 77002; J1040; J3490; Q9965

== ENCOUNTER → 2020-08-23 | Outpatient (CLI) | payer MEDICARE ==
[~2020-08-23] MED LIST changes: +BUPIVACAINE MPF 0.25% 10 ML VIAL. ONE; -BUPIVACAINE MPF 0.5% 30 ML VIAL. ONE
--- NOTE | 2020-08-23 08:50 | PDOC ---
Progress Note - Pain Clinic Date of Service: DOS: DATE: 08/23/20 TIME: 08:46 Diagnosis: Dx: Right shoulder joint pain with osteoarthritis Lumbar radiculopathy with lumbar degenerative disease lumbar spinal stenosis History or Present Illness: HPI: 65-year-old male returns for follow-up status post right intra-articular glenohumeral shoulder joint injection on June 16, 2090 patient reports very well with about 85% improvement initially now the pain is returned as patient has been quite active with work as well as recreational activity with the right shoulder becoming more painful now about 30% improved overall patient reports of the first month and a half to be doing much better patient reports the pain is returning with repetitive motions or lifting with the right arm throwing actions and weightbearing. Patient reports no significant pain in the left side patient denies pain in the right shoulder is aching dull sharp stabbing at times can be constant and severe patient reports is an 8 on scale 10 is worse over the past week 6 on average 5 its least is a 6 today. Patient reports no new motor or sensory deficits no new bowel or bladder incontinence or other complaints. Physical Exam: VS: Blood pressure is 143/75 pulse 94 respirations 18 temperature is 98.6 F height is 5 feet 6 inches weight is 158 pounds PE: PHYSICAL EXAMINATION: GENERAL: The patient is awake, alert, oriented, appropriate, very pleasant demeanor HEENT: Shows normocephalic, atraumatic. Extraocular movements are intact and symmetrical. Oral cavity: Mucous membranes moist and pink. Dentition is intact. NECK: Shows anterior throat supple without palpable lymphadenopathy noted. Swallow reflex symmetrical. CHEST: Shows normal on inspection. Breath sounds are clear bilaterally, no rales or rhonchi. HEART: Shows S1, S2 clear. No murmurs auscultated. ABDOMEN: Soft, nontender, nondistended. No palpable organomegaly is noted. BACK: Shows spine grossly in the midline. Normal-appearing cervical lordotic curvature. There is slightly increased thoracic kyphosis, some minor flattening of the lumbar lordotic curvature. Well-healed surgical scarring is noted in the midline. Lumbar paraspinous muscles show symmetrical on inspection, on palpation shows some moderate tenderness diffusely throughout the upper, middle and lower distribution of the paraspinous muscles, but without specific trigger points, without radiation of pain. The patient has good rotational motion of the lumbar spine, both laterally as well as extension and flexion without significant difficulty. No tenderness over the spinous processes, sacrum or sacroiliac regions. EXTREMITIES: Lower extremities show deep tendon reflexes 1+ in the patellar and tendo calcaneus tendons. Motor exam is 5 on a scale of 5 with right dorsiflexion, extension, quadriceps and hamstring flexion and 5/5 on the left. Peripheral pulses are 1+ posterior tibial. No peripheral edema is noted bilaterally. Lower extremities are warm and dry to touch, equal in color and appearance. Upper extremity show deep tendon reflexes 2+ in the bicep tricep tendons motor exam is strong with 5 out of 5 railroad car letterer strength bicep and tricep flexion. Peripheral pulses are 2+ radial no peripheral edema is noted bilaterally. Patient's right shoulder shows tenderness with abduction past about 45 to 50 degrees as well as with weightbearing and resistance. Patient has some minor pain with shoulder shrug and resistance on the right side only but no loss of strength. SKIN: Shows warm and dry, good turgor. No edema. No sores, rashes or bruising throughout. Procedure: Procedure: Options discussed with the patient. Patient chart was reviewed his current medication regimen updated current review of systems updated today as well. We will proceed with a right intra-articular shoulder joint injection with fluoroscopic guidance. Risk were discussed including but not limited to bleeding infection possibility of intravascular injection sequelae spread local anesthetic and numbness side effects steroid medication exposure fluoroscopy and portals rating pain control. Patient understands and wished to proceed. Patient return to the clinic in approximately 4 weeks for follow-up, was counseled as to return appointment activity level and side effects to be aware of. Medication Injected: Med Injected: Patient supine position under sterile prep and drape using C-arm fluoroscopic guidance patient's right shoulder was visualized and using 25-gauge needle 1% lidocaine was used to topically anesthetized area over the glenohumeral joint on the right. Using a 22-gauge Quincke needle with stylette the joint was entered under direct fluoroscopic visualization without difficulty stylet was removed at this time 2 cc of contrast was injected with good intra-articular spread in the shoulder joint without uptake. At this time 3 cc of 0.25% bupivacaine and 80 mg Depo-Medrol was then injected into the joint. Needle was removed and sterile bandage was applied. Patient tolerated the procedure well and had no complications. Condition at Discharge: Condition at Discharge: Condition at discharge is stable, patient tolerated the procedure well and had no complications. LUCIANO HAMMONDS MD August 23, 2020 08:50
--- NOTE | 2020-08-23 08:51 | PDOC4 ---
PROCEDURE Procedure Patient was consented for right intra-articular glenohumeral shoulder joint injection. Risk were discussed including but not limited to bleeding infection possibility of intravascular injection and sequelae spread local anesthetic numbness side effects steroid medication exposure fluoroscopy and poor results regarding pain control. Patient understands wished to proceed. Patient supine position under sterile prep and drape using C-arm fluoroscopic guidance patient's right shoulder was visualized and using 25-gauge needle 1% lidocaine was used to topically anesthetized area over the glenohumeral joint on the right. Using a 22-gauge Quincke needle with stylette the joint was entered under direct fluoroscopic visualization without difficulty stylet was removed at this time 2 cc of contrast was injected with good intra-articular spread in the shoulder joint without uptake. At this time 3 cc of 0.25% bupivacaine and 80 mg Depo-Medrol was then injected into the joint. Needle was removed and sterile bandage was applied. Patient tolerated the procedure well and had no complications. LUCIANO HAMMONDS MD August 23, 2020 08:51
== END | disposition home or self-care (01) ==
LOC: PNCL 07:59
PROVIDERS: ATTEND Anesthesiology
DX: M19.011 Primary osteoarthritis, right shoulder (principal); M51.16 Intervertebral disc disorders with radiculopathy, lumbar region; M48.061 Spinal stenosis, lumbar region without neurogenic claudication; M25.511 Pain in right shoulder; K21.9 Gastro-esophageal reflux disease without esophagitis; Z90.49 Acquired absence of other specified parts of digestive tract; Z98.890 Other specified postprocedural states; Z79.899 Other long term (current) drug therapy; Z79.82 Long term (current) use of aspirin; Z72.89 Other problems related to lifestyle; Z88.8 Allergy status to other drugs, medicaments and biological substances
CPT/HCPCS: 20610; 77002; J1040; J3490; Q9965

== ENCOUNTER → 2020-10-05 | Outpatient (CLI) | payer MEDICARE ==
[~2020-10-05] MED LIST changes: -BUPIVACAINE MPF 0.25% 10 ML VIAL. ONE; -IOHEXOL 180 MG/ML 10 ML VIAL. ONE; -OMEP40CA45 PO; +OMEP40CA7 PO; -methylPREDNISolone ACETATE 80 MG/ML VIAL. ONE
--- NOTE | 2020-10-05 13:44 | KCIC ---
EXAM: CHEST 2 VIEWS. HISTORY: Hoarseness, cough for 4 months. COMPARISON: 04/24/2017. FINDINGS: Frontal and lateral views of the chest are obtained. Chronic linear opacities in the left base are consistent with scarring. There is no pneumothorax or p leural effusion. The heart is not enlarged. Calcified lymph nodes likely reflect old granulomatous di sease. Changes of cervical fusion are noted. IMPRESSION: 1. Chronic atelectasis/scarring in the left base. No acute process is identified radiographically. Electronically signed by: Ac Alvarado MD (10/05/2020 1:11 PM) [id number]
== END ==
LOC: KCIC 11:03
PROVIDERS: ATTEND Nurse Practitioner Gerontology
DX: R05 Cough (principal)
CPT/HCPCS: 71046

== ENCOUNTER → 2020-11-03 | Outpatient (CLI) | payer MEDICARE ==
--- NOTE | 2020-11-03 17:15 | KCIC ---
Examination: CT chest without contrast HISTORY: History of cough COMPARISON: None available TECHNIQUE: Axial CT images of the chest were performed without contrast. Coronal and sagittal reforma ts are performed Exposure: One or more of the following individualized dose reduction techniques were utilized for thi s examination: 1. Automated exposure control 2. Adjustment of the mA and/or kV according to patient size 3. Use of iterative reconstruction technique FINDINGS: The central airways are patent. Coronary artery calcifications identified. The caliber of the aorta g rossly appears unremarkable. No evidence of significant mediastinal lymphadenopathy. Mild atelectasis or scarring changes left lung base. The visualized noncontrasted liver, spleen, and grossly appears unremarkable. Mild degenerative changes thoracic spine. IMPRESSION: Mild linear lung atelectasis or scarring. Electronically signed by: Nazario Singh MD (11/03/2020 5:13 PM) [id number]
== END ==
LOC: KCIC CT 12:48
PROVIDERS: ATTEND Family Medicine
DX: R05 Cough (principal); I25.10 Atherosclerotic heart disease of native coronary artery without angina pectoris
CPT/HCPCS: 71250

== ENCOUNTER → 2020-12-22 | Outpatient (CLI) | payer MEDICARE ==
--- NOTE | 2020-12-22 15:11 | KCIC ---
EXAMINATION: Magnetic resonance imaging (MRI) of the cervical spine without contrast 12/22/2020 12:36 P M HISTORY: Cervical radiculopathy. Fractured neck with instrumentation 2003. Limited range of motion fo r 5 weeks. TECHNIQUE: Multiplanar multi-weighted MRI of the cervical spine was performed without intravenous con trast using the standard cervical spine protocol. Contrast information: None administered COMPARISON: None available. FINDINGS: There is 2 mm retrolisthesis of C3 on C4. 1 mm retrolisthesis of C4 on C5. There is 2 mm anterolisthe sis of C7 on T1. Anterior cervical discectomy and fusion hardware is identified at C6-C7 with complet e osseous fusion. Cervical spinal cord signal intensity is normal in all sequences. Posterior fossa i s normal in appearance. Vertebral artery flow voids are maintained. Atlantoaxial articulation is inta ct. Craniocervical junction is normal. There is no prevertebral edema. Vertebral body heights are norman ntained. Marrow signal intensity is normal on all sequences. Mild disc height loss at C5-C6 and C7-T1 . Mild disc height loss at C3-C4. Posterior elements appear intact. C2-C3: Disc is normal in configuration. No significant facet arthropathy. No uncovertebral joint dise ase. No neuroforaminal or spinal canal stenosis. C3-C4: There is a posterior disc osteophyte complex. Mild facet and uncovertebral joint disease. Mode rate left and mild right neuroforaminal stenosis. Mild spinal canal stenosis, exacerbated by ligament um flavum infolding. There is no deformity of the cord or cord signal alteration. C4-C5: There is a posterior disc osteophyte complex which appear symmetric. Mild facet arthropathy. M ild uncovertebral joint disease. Moderate bilateral neuroforaminal stenosis. Mild spinal canal stenos is without deformity of the cord or cord signal alteration. C5-C6: There is a disc bulge. Mild facet arthropathy. Moderate uncovertebral joint disease. Moderate right and mild to moderate left neuroforaminal stenosis. Mild spinal canal stenosis without deformity or cord or cord signal alteration. C6-C7: This level is fused. No residual neuroforaminal or spinal canal stenosis. C7-T1: There is a posterior discussed by complex asymmetric to the left. Moderate left and moderate f acet arthropathy. Moderate left uncovertebral joint disease. Moderate left neuroforaminal stenosis. M ild spinal canal stenosis, exacerbated by ligament of flavum infolding. No significant cord deformity or cord signal alteration. IMPRESSION: 1. Anterior cervical discectomy and fusion identified at C6-C7 without evidence for hardware failure. 2. Mild cervical spondylosis as described in detail above. Electronically signed by: Mariaa Browne MD (12/22/2020 3:09 PM) [id number]
== END ==
LOC: KCIC MRI 12:22
PROVIDERS: ATTEND Family Medicine
DX: M47.22 Other spondylosis with radiculopathy, cervical region (principal); M43.13 Spondylolisthesis, cervicothoracic region; M50.222 Other cervical disc displacement at C5-C6 level; M48.8X3 Other specified spondylopathies, cervicothoracic region; M48.03 Spinal stenosis, cervicothoracic region; M25.78 Osteophyte, vertebrae; Z98.1 Arthrodesis status
CPT/HCPCS: 72141

== ENCOUNTER → 2020-12-29 | Outpatient (CLI) | payer MEDICARE ==
[~2020-12-29] MED LIST changes: +BUPIVACAINE MPF 0.25% 10 ML VIAL. ONE; +IOHEXOL 180 MG/ML 10 ML VIAL. ONE; +methylPREDNISolone ACETATE 80 MG/ML VIAL. ONE
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
--- NOTE | 2020-12-29 09:43 | PDOC4 ---
Procedure Note: ICD 10 Code: ICD 10 Code: M2 5.511 M19.011 Procedure Note: Patient was consented for right intra-articular shoulder joint injection fluoroscopic guidance. Risk were discussed including but not limited to bleeding infection possibly intravascular injection sequelae spread of local anesthetic numbness side effects steroid medications post arthroscopy and portals regarding pain control. Patient understands wished to proceed. Patient supine position under sterile prep and drape using C-arm fluoroscopic guidance patient's right shoulder was visualized and using 25-gauge needle 1% lidocaine was used to topically anesthetized area over the glenohumeral joint on the right. Using a 22-gauge Quincke needle with stylette the joint was entered under direct fluoroscopic visualization without difficulty stylet was removed at this time 2 cc of contrast was injected with good intra-articular spread in the shoulder joint without uptake. At this time 3 cc of 0.25% bupivacaine and 80 mg Depo-Medrol was then injected into the joint. Needle was removed and sterile bandage was applied. Patient tolerated the procedure well and had no complications. LUCIANO HAMMONDS MD Dec 29, 2020 09:43
== END | disposition home or self-care (01) ==
LOC: PNCL 08:58
PROVIDERS: ATTEND Anesthesiology
DX: M19.011 Primary osteoarthritis, right shoulder (principal); M51.16 Intervertebral disc disorders with radiculopathy, lumbar region; M48.061 Spinal stenosis, lumbar region without neurogenic claudication; I10 Essential (primary) hypertension; K21.9 Gastro-esophageal reflux disease without esophagitis; Z90.49 Acquired absence of other specified parts of digestive tract; Z98.890 Other specified postprocedural states; Z79.899 Other long term (current) drug therapy; Z79.82 Long term (current) use of aspirin; Z72.89 Other problems related to lifestyle; Z91.041 Radiographic dye allergy status; Z88.8 Allergy status to other drugs, medicaments and biological substances
CPT/HCPCS: 20610; 77002; J1040; J3490; Q9965

== ENCOUNTER → 2021-08-03 | Outpatient (CLI) | payer MEDICARE ==
[~2021-08-03] MED LIST changes: +DEXAMETHASONE PRES.FREE 10 MG/ML VIAL. ONE; +TIZA-75 PO; -TIZA4TAB2 PO; -methylPREDNISolone ACETATE 80 MG/ML VIAL. ONE
--- NOTE | 2021-08-03 10:17 | PDOC ---
Progress Note - Pain Clinic Date of Service: DOS: DATE: 08/03/21 TIME: 10:14 Diagnosis: Dx: Lumbar radiculopathy with lumbar degenerative disease and lumbar spinal stenosis Right shoulder joint pain with osteoarthritis History or Present Illness: HPI: 66-year-old male returns for follow-up status post lumbar epidural steroid injections and right shoulder joint injection patient reports pain significant in the right shoulder joint last seen December 29, 2020 patient did very well at that time, with approximate 100% improvement for several months, but reports pain is returning significantly in the right shoulder with repetitive motions reaching lifting weightbearing patient reports is getting awaken from sleep about every 4-5 hours patient reports it is an 8 on scale 10 is worse over the past week 6 on average 6 at its least and is a [address] aching sharp and dull alternating in the shoulders all stabbing and constant with repetitive motions driving also working reaching over his head with his right arm. Patient reports his low back is doing very well with some pain occasionally across the low back into the bilateral lower extremities but very rarely. Patient reports no bowel or bladder incontinence at this time. Physical Exam: VS: Blood pressure is 141/95 pulse 99 respirations 18 temperature 98.2 F height 5 feet 6 inches weight is 158 pounds. PE: PHYSICAL EXAMINATION: GENERAL: The patient is awake, alert, oriented, appropriate, very pleasant in demeanor HEENT: Shows normocephalic, atraumatic. Extraocular movements are intact and symmetrical. Oral cavity: Mucous membranes moist and pink. Dentition is intact. NECK: Shows anterior throat supple without palpable lymphadenopathy noted. Swallow reflex symmetrical. CHEST: Shows normal on inspection. Breath sounds are clear bilaterally, no rales rhonchi wheezes auscultated. HEART: Shows S1, S2 clear. No murmurs auscultated. ABDOMEN: Soft, nontender, nondistended. No palpable organomegaly is noted. BACK: Shows spine grossly in the midline. Normal-appearing cervical lordotic curvature. There is slightly increased thoracic kyphosis, some minor flattening of the lumbar lordotic curvature. Lumbar paraspinous muscles show symmetrical on inspection, on palpation shows some moderate tenderness diffusely throughout the upper, middle and lower distribution of the paraspinous muscles without specific trigger points, without radiation of pain. The patient has good rotational motion of the lumbar spine, both laterally as well as extension and flexion without significant difficulty. EXTREMITIES: Lower extremities show deep tendon reflexes deep in the patellar and tendo calcaneus tendons. Motor exam is 5 on a scale of 5 with right dorsiflexion, extension, quadriceps and hamstring flexion and 5/5 on the left. Peripheral pulses are 1+ posterior tibial. No peripheral edema is noted bilaterally. Lower extremities are warm and dry to touch, equal in color and appearance. Upper extremities show deep tendon reflexes 2+ in the bicep tricep tendons, motor exam strong with silk examiner strength rated at 5 out of 5 bicep and tricep flexion 4-5 on the right and 5 out of 5 on the left. Patient's right shoulder shows significant tenderness with abduction past 45 degrees with significant tenderness at 90 degrees left side is shows full rotation without difficulty. Shoulder shrug strong intact without loss of strength on resistance bilaterally. SKIN: Shows warm and dry, good turgor. No edema. No sores, rashes or bruising throughout. Procedure: Procedure: Options discussed with the patient. Patient's old chart was reviewed his cu rrent medication regimen updated current review of systems updated today as well. We will proceed with a right intra-articular shoulder joint injection today with fluoroscopic guidance. Risks are discussed including but not limited to bleeding infection possibility of intravascular injection sequelae spread of local anesthetic numbness side effects steroid medication exposure fluoroscopy and poor results regarding pain control. Patient understands wished to proceed. Patient will return to clinic in approximately 4 weeks for follow-up, was counseled as to return appointment, activity level, and side effect to be aware of. Medication Injected: Med Injected: Patient supine position under sterile prep and drape using C-arm fluoroscopic guidance patient's right shoulder was visualized and using 25-gauge needle 1% lidocaine was used to topically anesthetized area over the glenohumeral joint on the right. Using a 22-gauge Quincke needle with stylette the joint was entered under direct fluoroscopic visualization without difficulty stylet was removed at this time 2 cc of contrast was injected with good intra-articular spread in the shoulder joint without uptake. At this time 3 cc of 0.25% bupivacaine and 15 mg dexamethasone was then injected into the joint. Needle was removed and sterile bandage was applied. Patient tolerated the procedure well and had no complications. Condition at Discharge: Condition at Discharge: Condition at discharge stable, patient tolerated the procedure well and had no complications. LUCIANO HAMMONDS MD Aug 03, 2021 10:17
--- NOTE | 2021-08-03 10:18 | PDOC4 ---
Procedure Note: ICD 10 Code: ICD 10 Code: M2 5.511 M19.011 Procedure Note: Patient was consented for right intra-articular shoulder joint injection today with fluoroscopic guidance. Risks were discussed including but not limited to bleeding infection possibility of intravascular injection sequelae spread local anesthetic numbness side effects of steroid medication exposure fluoroscopy and portals regarding pain control. Patient understands wished to proceed. Patient supine position under sterile prep and drape using C-arm fluoroscopic guidance patient's right shoulder was visualized and using 25-gauge needle 1% lidocaine was used to topically anesthetized area over the glenohumeral joint on the right. Using a 22-gauge Quincke needle with stylette the joint was entered under direct fluoroscopic visualization without difficulty stylet was removed at this time 2 cc of contrast was injected with good intra-articular spread in the shoulder joint without uptake. At this time 3 cc of 0.25% bupivacaine and 15 mg dexamethasone was then injected into the joint. Needle was removed and sterile bandage was applied. Patient tolerated the procedure well and had no complications. LUCIANO HAMMONDS MD Aug 03, 2021 10:18
== END | disposition home or self-care (01) ==
LOC: PNCL 09:15
PROVIDERS: ATTEND Anesthesiology
DX: M19.011 Primary osteoarthritis, right shoulder (principal); M51.16 Intervertebral disc disorders with radiculopathy, lumbar region; M48.061 Spinal stenosis, lumbar region without neurogenic claudication; K21.9 Gastro-esophageal reflux disease without esophagitis; M19.90 Unspecified osteoarthritis, unspecified site; Z90.49 Acquired absence of other specified parts of digestive tract; Z98.890 Other specified postprocedural states; Z79.82 Long term (current) use of aspirin; Z72.89 Other problems related to lifestyle; Z88.8 Allergy status to other drugs, medicaments and biological substances
CPT/HCPCS: 20610; 77002; J1100; J3490; Q9965